=== PATIENT | male | born 1980 | race Caucasian/White ===

== ENCOUNTER 2019-10-21 13:50 | Emergency (ER) | payer SELFPAY ==
--- NOTE | ~2019-10-21 | CT_ITS ---
EXAMINATION: CT knee RT wo con DATE: 10/21/2019 15:40 INDICATION: Right knee pain TECHNIQUE: Computed tomography (CT) of the right knee was performed without intravenous contrast. The dose-length product (DLP) was 513.97 mGy-cm. Automated exposure control and iterative reconstruction technique were employed. COMPARISON: None FINDINGS: There is extensive soft tissue swelling surrounding the knee. This is worst in the infrapat ellar soft tissues. There is also heterogeneous attenuation predominantly in the medial musculature o f the knee at the level of patella. No fracture is identified. Bone alignment is normal. IMPRESSION: 1. Extensive soft tissue swelling in the infrapatellar space as well as suspicion for intramuscular h ematoma medial to the knee. Reviewed, dictated and finalized at location A. IMPRESSION: 1. Extensive soft tissue swelling in the infrapatellar space as well as suspici on for intramuscular hematoma medial to the knee.
[2019-10-21 13:55] VITALS: BP 109/62; PULSE 52; RESP 20; TEMP 36.6; O2SAT 100
[2019-10-21] MEDS: TETANUS,DIPHTHERIA,AC PERTUSSIS ADULT (0.5 ML) BOOSTRIX IM (14:42)
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
[2019-10-21 14:56] LABS: Basophils Absolute Auto 0.1 K/mm3 (0.0-0.1); Basophils Percent Auto 0.6 % (0.2-1.2); Eosinophils Absolute Auto 0.1 K/mm3 (0-0.3); Eosinophils Percent Auto 1.5 % (0-4.4); Hematocrit 37.7 % (42.0-52.0); Hemoglobin 12.3 g/dL (14.0-18.0); Immature Granulocyte Absolute 0.03 K/mm3 (0.00-0.031); Immature Granulocyte Percent A 0.4 % (0-0.5); Mean Corpuscular HGB Conc 32.6 g/dl (32-36); Monocytes Absolute Auto 0.7 K/mm3 (0.1-0.6); Monocytes Percent Auto 8.1 % (2.6-8.5); Neutrophils Absolute Auto 6.5 K/mm3 (1.3-6.7); Neutrophils Percent Auto 76.4 % (45.5-73.1); Platelet Count Result 216 k/mm3 (150-375); Red Cell Distribution Width 12.2 % (11.5-14.5); White Blood Count 8.5 K/mm3 (4.5-10.0)
[2019-10-21 15:25] LABS: Add Urine Microscopic? YES; Appearance Urine Clear (Clear); Bilirubin Urine Negative (Negative); Blood Urine Negative (Negative); Color Urine Yellow (Yellow); Glucose Urine UA Negative (Negative); Ketones Urine Negative (Negative); Leukocyte Esterase Ur Negative LEU/UL (Negative); Mucus Urine Few /lpf; Nitrate Urine Negative (Negative); Protein Urine 1+ mg/dL (Negative); RBC Urine 0-2 /hpf (0-2); Specific Grav Ur 1.021 (1.001-1.035); Squamous Epithelial Cell Urine Rare /hpf (Few); Urobilinogen Urine Negative mg/dL (<2.0); WBC Urine 0-3 /hpf
[2019-10-21 15:50] LABS: Blood Urea Nitrogen 11 mg/dL (9-20); Calcium 9.1 mg/dL (8.4-10.2); Carbon Dioxide 31 mmol/L (22-30); Chloride 101 mmol/L (98-107); Estimated Glomerular Filt Rate > 60; Glucose 146 mg/dL (75-110); Potassium 3.9 mmol/L (3.4-5.0); Sodium 135 mmol/L (137-145)
== END 2019-10-21 17:07 | disposition home or self-care (01) ==
PROVIDERS: Emergency Medicine Emergency Medical Services; Emergency Provider General Practice
DX: S83.206A Unspecified tear of unspecified meniscus, current injury, right knee, initial encounter (principal); Z23 Encounter for immunization; V86.55XA Driver of 3- or 4- wheeled all-terrain vehicle (ATV) injured in nontraffic accident, initial encounter
CPT/HCPCS: 36415; 73700; 80048; 81001; 85025; 90471; 90715; 96365; 99284; J0131

== ENCOUNTER 2021-05-21 12:21 | Emergency (ER) | payer SELFPAY ==
--- NOTE | ~2021-05-21 | XR_ITS ---
XR toe 2nd LT min 2V 05/21/2021 14:53 Indication: Left second toe pain for 3 months Procedure: 4 views left second toe Comparison: No prior studies for comparison. Findings: There is mild polyarticular osteoarthritis. No acute fracture or traumatic malalignment. Li sfranc joint intact. There is an erosion involving the medial aspect of the first metatarsal head, cohen spicious for inflammatory arthropathy. Impression: 1: Erosive change medial aspect of the left first metatarsal head, suspicious for inflammatory arthro mary alice. Reviewed, dictated and finalized at location A. RAL RESOURCE ECONOMIST Impression: 1: Erosive change medial aspect of the left first metatarsal head, suspicious f or inflammatory arthropathy.
--- NOTE | ~2021-05-21 | CT_ITS ---
EXAMINATION: CT abdomen pelvis w con DATE: 05/21/2021 16:36 INDICATION: Left abdominal swelling TECHNIQUE: Computed tomography (CT) of the abdomen and pelvis was performed with 100 cc Omnipaque 350 intravenous contrast. Automated exposure control and iterative reconstruction technique were employe d. Exam dose: 645.45 mGy-cm total exam DLP. COMPARISON: None. FINDINGS: The lung bases are clear of infiltrate or consolidation. Normal heart size. No pericardial or pleural effusion. The liver, gallbladder, bile ducts, spleen, pancreas, pancreatic duct, and adrenal glands and kidneys are unremarkable exception of approximately 9 mm left renal cyst. No urinary tract calculus or hydro ureteronephrosis. The urinary bladder, prostate gland and seminal vesicles are unremarkable. Normal caliber of the abdominal aorta. Retroaortic left renal vein. No intraperitoneal or retroperito franny or pelvic mass lesion or ascites. There are shotty nonenlarged periaortic and aortocaval lymph nodes. There are nonspecific mild nonenl arged lymph nodes along both external iliac thom chains. There are bilateral inguinal lymph nodes me asuring up to 1.7 x 2.5 cm on the left and 1.6 x 2.5 cm on the right. No inguinal hernias. Very slight fat-containing umbilical hernia. Normal appendix. No bowel obstruction, bowel wall thickening, pneumatosis or intraperitoneal free air . Levoscoliosis and multilevel degenerative disc disease of the lumbar spine. No suspicious osteolytic or osteoblastic lesions are noted. IMPRESSION: 9 mm left renal cyst Shotty nonenlarged periaortic and aortocaval lymph nodes and nonspecific mild nonenlarged bilateral e xternal iliac chain lymph nodes Nonspecific bilateral prominent inguinal lymph nodes Reviewed, dictated and finalized at Location A. Reviewed, dictated and finalized at location B. ER INSPECTOR PNEUMATIC IMPRESSION: 9 mm left renal cyst Shotty nonenlarged periaortic and aortocaval lymph nodes and nonspecific mild n onenlarged bilateral external iliac chain lymph nodes Nonspecific bilateral prominent inguinal lymph nodes
--- NOTE | ~2021-05-21 | XR_ITS ---
XR toe 2nd RT min 2V 05/21/2021 14:53 Indication: Right second toe pain for months Procedure: 4 views right second toe Comparison: No prior studies for comparison. Findings: There is an erosion involving the medial aspect of the second middle phalanx. There is hete rotopic ossification along the plantar aspect of the middle phalanx on the lateral view. There is mil d soft tissue swelling. No fracture is identified. There is degenerative change at the first MTP join t with possible marginal erosion involving the lateral aspect of the head of the first metatarsal. Th ere is hallux valgus. Impression: 1: Erosion involving the medial aspect of the right second middle phalanx. Possible resolution involv ing the head of the first metatarsal. Considerations include inflammatory arthropathy and infection. If there is concern for osteomyelitis, further evaluation with MRI is recommended. Reviewed, dictated and finalized at location A. ALL AND REPAIR TECHNICIAN Impression: 1: Erosion involving the medial aspect of the right second middle phalanx. Poss ible resolution involving the head of the first metatarsal. Considerations incl ude inflammatory arthropathy and infection. If there is concern for osteomyelit is, further evaluation with MRI is recommended.
[2021-05-21 12:27] VITALS: BP 145/93; PULSE 100; RESP 16; TEMP 36.6; O2SAT 100
--- NOTE | 2021-05-21 14:31 | ED.GENADULT ---
HPI - General Adult General Chief complaint: Extremity Injury, Lower Stated complaint: swollen toe and back Time Seen by Provider: 05/21/21 13:10 Source: patient Mode of arrival: ambulatory Limitations: no limitations History of Present Illness HPI narrative: Patient drove himself to the emergency room complaining of swelling second toe bilaterally for the last 3 months, also have some swelling of the left lower abdomen and left flank area 4 weeks, patient denies any pain, fever, chills, nausea, vomiting, diarrhea, constipation, urinary symptoms. Patient smokes, does not drink, does not use marijuana. Related Data Allergies Allergy/AdvReac Type Severity Reaction Status Date / Time No Known Allergies Allergy Verified 05/21/21 12:40 Review of Systems Review of Systems: CONSTITUTIONAL: Denies fever, chills, or sweats. EYES: Denies visual changes, redness, or discharge. ENT: Denies rhinorrhea, congestion, sore throat, or otalgia. CARDIOVASCULAR: Denies chest pain, palpitations, or edema. RESPIRATORY: Denies cough or dyspnea. GASTROINTESTINAL: Denies abdominal pain, nausea, vomiting, or diarrhea. GENITOURINARY: Denies dysuria or hematuria. SKIN: Denies rash or itching. MUSCULOSKELETAL: Denies back pain, joint pain, or myalgia. NEUROLOGIC: Denies headache, numbness, or weakness. PSYCHIATRIC: Denies anxiety or depression. PMFSH Social History Social History Smoking status: Never smoker Exam Narrative: General appearance: Well-developed, well-nourished Skin: Normal color Head: Normocephalic, nontraumatic Eyes: Clear conjunctiva ENT: Oropharynx normal, ears normal, nose normal Neck: Supple, nontender Chest and respiratory: Airway patent, no respiratory distress, no accessory muscle use Heart: Regular rate/rhythm Abdomen: Soft, nontender, no organomegaly, quiet bowel sounds Vascular: Normal peripheral pulses, normal capillary refill. Musculoskeletal: Second toe bilaterally is swollen, slightly red, no tenderness, with some ulceration medially looks like ductulitis, psoriatic arthritis Neurologic: Alert and oriented ?3, GENERAL MEDICAL PRACTITIONER is normal as tested, no gross motor deficit Course Course Emergency Course: Stable Consultations Consultation #1: Dr. Mei Date: 05/21/21 Time: 16:57 Vital Signs Vital signs: Vital Signs Temperature 36.6 C 05/21/21 12:27 Pulse Rate 100 05/21/21 12:27 Respiratory Rate 16 05/21/21 12:27 Blood Pressure 145/93 H 05/21/21 12:27 Pulse Oximetry 100 05/21/21 12:27 Temperature 36.6 C 05/21/21 12:27 Pulse Rate 100 05/21/21 12:27 Respiratory Rate 16 05/21/21 12:27 Blood Pressure 145/93 H 05/21/21 12:27 Pulse Oximetry 100 05/21/21 12:27 Medical Decision Making MDM Narrative Medical decision making narrative: Patient did not see a physician or did not have any blood work-up for years. Swollen toes high likely secondary to tinea pedis versus callus. None tender, nonpainful swelling of the left lower abdomen and left flank area of unknown etiology at this time, CT scan of the abdomen and pelvis ordered. Differential Diagnosis Differential Diagnosis: Tinea pedis, callus, electrolyte imbalance, diabetes Vital Signs Vital Signs: Vital Signs Temperature 36.6 C 05/21/21 12:27 Pulse Rate 100 05/21/21 12:27 Respiratory Rate 16 05/21/21 12:27 Blood Pressure 145/93 H 05/21/21 12:27 Pulse Oximetry 100 05/21/21 12:27 Temperature 36.6 C 05/21/21 12:27 Pulse Rate 100 05/21/21 12:27 Respiratory Rate 16 05/21/21 12:27 Blood Pressure 145/93 H 05/21/21 12:27 Pulse Oximetry 100 05/21/21 12:27 Lab Data Result diagram
[2021-05-21 15:27] LABS: Basophils Percent Auto 0.6 % (0.2-1.2); Eosinophils Absolute Auto 0.5 K/mm3 (0-0.3); Eosinophils Percent Auto 7.7 % (0-4.4); Hematocrit 44.3 % (42.0-52.0); Hemoglobin 14.3 g/dL (14.0-18.0); Immature Granulocyte Absolute 0.03 K/mm3 (0.00-0.031); Immature Granulocyte Percent A 0.5 % (0-0.5); Lymphocytes Absolute Auto 1.68 K/mm3 (0.9-3.2); Lymphocytes Percent Auto 25.3 % (18.3-44.2); Mean Corpuscular HGB Conc 32.3 g/dl (32-36); Mean Corpuscular Hemoglobin 29.7 pg (26-34); Mean Corpuscular Volume 92.1 fl (80-100); Mean Platelet Volume 9.2 fl (7.4-10.4); Monocytes Absolute Auto 0.6 K/mm3 (0.1-0.6); Monocytes Percent Auto 8.3 % (2.6-8.5); Neutrophils Absolute Auto 3.8 K/mm3 (1.3-6.7); Neutrophils Percent Auto 57.6 % (45.5-73.1); Platelet Count Result 313 k/mm3 (150-375); Red Blood Count 4.81 M/mm3 (4.6-6.20); White Blood Count 6.7 K/mm3 (4.5-10.0)
[2021-05-21 15:42] LABS: Add Urine Microscopic? YES; Appearance Urine Clear (Clear); Bilirubin Urine Negative (Negative); Blood Urine Negative (Negative); Color Urine Yellow (Yellow); Glucose Urine UA Negative (Negative); Ketones Urine Negative (Negative); Leukocyte Esterase Ur Negative LEU/UL (Negative); Mucus Urine Rare /lpf; Nitrate Urine Negative (Negative); Protein Urine Negative (Negative); RBC Urine 0-2 /hpf (0-2); Specific Grav Ur 1.027 (1.001-1.035); WBC Urine 0-3 /hpf
[2021-05-21 16:24] LABS: Alanine Aminotransferase 145 U/L (4-50); Albumin Level 4.7 g/dL (3.5-5.1); Alkaline Phosphatase 65 U/L (38-126); Anion Gap 7 mmol/L (8-16); Aspartate Amino Transferase 77 U/L (17-59); Bilirubin,Total 0.5 mg/dL (0.2-1.3); Blood Urea Nitrogen 16 mg/dL (9-20); Calcium 9.4 mg/dL (8.4-10.2); Carbon Dioxide 28 mmol/L (22-30); Chloride 100 mmol/L (98-107); Estimated CRCL calculation 108 ml/min; Estimated Glomerular Filt Rate > 60; Glucose 87 mg/dL (65-110); Lipase 130 U/L (23-300); Potassium 3.9 mmol/L (3.4-5.0); Sodium 135 mmol/L (137-145)
[2021-05-21 16:25] LABS: Creatine Kinase 361 U/L (55-170); Uric Acid 5.2 mg/dL (3.5-8.5)
[2021-05-21 16:28] LABS: CRP < 0.5 mg/dL (<1.0)
--- NOTE | 2021-05-21 16:31 | PC.NURSE ---
Off floor to CT scan.
[2021-05-21 17:15] VITALS: BP 139/103; PULSE 79; RESP 16; TEMP 36.6; O2SAT 98
[2021-05-21 17:30] LABS: Erythrocyte Sedimentation Rate 7 mm/hr (0-20)
== END 2021-05-21 17:15 | disposition home or self-care (01) ==
PROVIDERS: Emergency Provider Emergency Medicine
DX: M13.872 Other specified arthritis, left ankle and foot (principal); M13.871 Other specified arthritis, right ankle and foot; N28.1 Cyst of kidney, acquired
CPT/HCPCS: 36415; 73660; 74177; 80053; 81001; 82550; 83690; 84550; 85025; 85652; 86140; 99284; Q9967

== ENCOUNTER 2022-04-08 19:02 | Inpatient (IN) | payer MEDICAID, SELFPAY ==
--- NOTE | ~2022-04-08 | XR_ITS ---
EXAM: XR toe 2nd RT min 2V DATE: 04/08/2022 19:58 HISTORY: SWELLING/REDNESS. INFECTION X 2 WKS. NKI . COMPARISON: 05/21/2021. FINDINGS: Decreased mineralization. No fracture or dislocation. No lytic or blastic lesion. Moderate hallux valgus. Increased erosion and fragmentation of the medial and lateral aspect of the second mi ddle phalange. Significant soft tissue swelling of the second toe. IMPRESSION: Worsening erosion at the right second middle phalange with severe overlying soft tissue s welling. Differential considerations include inflammatory arthropathy and infection. Reviewed, dictated and finalized at location K. MAKER SUPERVISOR IMPRESSION: Worsening erosion at the right second middle phalange with severe o verlying soft tissue swelling. Differential considerations include inflammatory arthropathy and infection.
--- NOTE | ~2022-04-08 | XR_ITS ---
EXAMINATION: XR chest 2V DATE: 04/11/2022 15:26 INDICATION: Fever. TECHNIQUE: Frontal and lateral views of the chest were obtained. COMPARISON: CT abdomen and pelvis 05/21/2021 FINDINGS: A calcified right lung nodule is consistent with old granulomatous disease. No pneumonia, p leural effusion, or pneumothorax. The heart size is normal. No acute cardiopulmonary disease. IMPRESSION: 1. No acute cardiopulmonary disease. Reviewed, dictated and finalized at location A. RICT MANAGER IN TRAINING
--- NOTE | ~2022-04-08 | XR_ITS ---
EXAMINATION: XR toe 2nd LT min 2V DATE: 04/08/2022 23:05 INDICATION: Swelling and inflammation at the second toe. TECHNIQUE: Dorsal plantar, lateral and 2 oblique views of the left second toe were obtained. COMPARISON: None FINDINGS: Hallux valgus and bunion with mild hypertrophic change at the medial head of the first metatarsal. Sl ight contour abnormality to the intact cortex at the dorsal/ulnar aspect of the neck of the third met atarsal which could represent an old healed fracture deformity or sessile osteochondroma. Chronic lat eral sloping of the articular surface at the head of the second middle phalanx resulting in some valg us angulation at the second distal interphalangeal joint which could be either developmental or seque la of old trauma. No acute fracture. Mild polyarticular osteoarthritis at the metatarsophalangeal and interphalangeal joints, greatest at the first metatarsophalangeal joint. There is soft tissue swelli ng about the second toe with small full bulge medial to the second proximal interphalangeal joint. T here is a new small erosion along the medial cortex at the base of the second middle phalanx. IMPRESSION: Prominent soft tissue swelling at the second toe most prominent medial to the second proximal interph alangeal joint with underlying new erosion at the medial base of the second middle phalanx which is c oncerning for osteomyelitis. Differential would include other inflammatory or crystalline arthropathy including gout or pressure erosion related to a chronic enlarging mass. Reviewed, dictated and finalized at location A. CIPAL AUTOMATION ENGINEER IMPRESSION: Prominent soft tissue swelling at the second toe most prominent medial to the s econd proximal interphalangeal joint with underlying new erosion at the medial base of the second middle phalanx which is concerning for osteomyelitis. Differ ential would include other inflammatory or crystalline arthropathy including go ut or pressure erosion related to a chronic enlarging mass.
[2022-04-08 19:40] VITALS: BP 152/104; PULSE 105; RESP 20; TEMP 37.3; O2SAT 99
--- NOTE | 2022-04-08 22:47 | ED.LOWEXIN ---
HPI - Extremity Injury (Lower) General Chief Complaint: Extremity Injury, Lower <RADHIKA Soriano Last Filed: 04/09/22 02:19> Stated Complaint: infection to feet <RADHIKA Soriano Last Filed: 04/09/22 02:19> Time Seen by Provider: 04/08/22 22:40 <RADHIKA Soriano Last Filed: 04/09/22 02:19> History of Present Illness HPI Narrative: Patient is a 42-year-old male here for evaluation of swelling pain and a draining wound to his bilateral second toes. The patient states the swelling and inflammation first noticed about a year ago, was seen in the ED at that time and diagnosed with an inflammatory arthropathy. Was told to follow-up with donation specialist which she did not do. Patient states the swelling never decreased, but he states the pain has acutely increased over the past 2 weeks, which prompted his ED evaluation today. Has history of IVDU. He denies any fevers, chills, nausea, vomiting, further systemic symptoms. <RADHIKA Soriano Last Filed: 04/09/22 02:19> Related Data Allergies/Adverse Reactions: Allergies Allergy/AdvReac Type Severity Reaction Status Date / Time No Known Allergies Allergy Verified 04/09/22 04:41 <RADHIKA Soriano Last Filed: 04/09/22 02:19> Review of Systems Review of Systems: Gen.: Denies fevers or chills Eyes: Denies eye pain or visual change ENT: Denies congestion Respiratory: Denies shortness of breath or cough CV: Denies chest pain or palpitations GI: Denies abdominal pain nausea, emesis or diarrhea denies burning, urgency, frequency or hematuria Musculoskeletal: Reports swelling and pain to bilateral second toes. Denies back pain or muscle pain Neuro: Denies numbness, tingling, weakness or focal weakness Skin: Denies rash Except as documented, all other systems reviewed and negative <RAHDIKA Soriano Last Filed: 04/09/22 02:19> [facility] Social History Social History: Social History Smoking status: Never smoker <Fany Davis PA-C - Last Filed: 04/09/22 02:19> Exam Narrative: APPEARANCE: Well appearing, no pain in distress, well-nourished. Head: Normocephalic and atraumatic. EYES: PERRLA/EOMI, conjunctivae clear NOSE: No nasal drainage EARS: External ear normal in appearance THROAT: Oropharynx is clear. Mucous membranes are moist. NECK: Supple. No adenopathy, no masses. RESPIRATORY: Airway patent, respirations nonlabored. Clear to auscultation bilaterally, no rales, rhonchi, wheezing. CARDIOVASCULAR: Regular rate and rhythm without murmurs, rubs, or gallops. ABDOMINAL: Normoactive bowel sounds. Soft, nontender, nondistended. No rebound tenderness or guarding. MUSCULOSKELETAL: Patient's second toes bilaterally are markedly swollen, red with open wounds draining serous fluid. Full range of motion in feet and toes. NEURO: Normal speech. No focal neurologic deficits. SKIN: Open and draining wounds to medial aspect of second toes bilaterally. Erythema is present to the right lower extremity fpc up the knee. PSYCHIATRIC: Normal affect/mood. <Fany Davis PA-C - Last Filed: 04/09/22 02:19> Course SCHOOL SERVICES OFFICER/PA Physician Supervision For this encounter, I have reviewed the mid-level provider documentation, treatment plan and medical decision making with the following additions. I have had [id number] time with the patient. Physical exam revealed significant erythema, swelling and purulent discharge from the 2nd toe on each foot. X-ray showed bony erosions Which are more consistent with osteomyelitis as opposed to cellulitis. Patient needs IV antibiotics and has been admitted to hospital. <Easton Balderrama MD - Last Filed: 04/09/22 04:56> Vital Signs Vital signs: Vital Signs Temperature 99.2 F 04/08/22 19:40 Pulse Rate 105 H 04/08/22 19:40 Respiratory Rate 20 04/08/22 19:40 Blood Pressure 152/
[2022-04-08 22:48] LABS: Glucose Point of Care 75 mg/dl (65-105)
[2022-04-09] VITALS (7 sets, daily range): BP systolic 129–168; BP diastolic 84–89; PULSE 68–101; RESP 16–20; TEMP 35.9–36.4; O2SAT 98–100; BMI 23.6
[2022-04-09 01:05] LABS: Basophils Absolute Auto 0.1 K/mm3 (0.0-0.1); Basophils Percent Auto 0.9 % (0.2-1.2); Eosinophils Absolute Auto 0.4 K/mm3 (0-0.3); Hematocrit 44.4 % (42.0-52.0); Hemoglobin 14.4 g/dL (14.0-18.0); Immature Granulocyte Absolute 0.01 K/mm3 (0.00-0.031); Immature Granulocyte Percent A 0.2 % (0-0.5); Lymphocytes Absolute Auto 1.47 K/mm3 (0.9-3.2); Lymphocytes Percent Auto 22.4 % (18.3-44.2); Mean Corpuscular HGB Conc 32.4 g/dl (32-36); Mean Corpuscular Hemoglobin 29.4 pg (26-34); Mean Corpuscular Volume 90.8 fl (80-100); Mean Platelet Volume 8.9 fl (7.4-10.4); Monocytes Absolute Auto 0.8 K/mm3 (0.1-0.6); Monocytes Percent Auto 11.6 % (2.6-8.5); Neutrophils Absolute Auto 3.9 K/mm3 (1.3-6.7); Neutrophils Percent Auto 58.9 % (45.5-73.1); Platelet Count Result 333 k/mm3 (150-375); Red Blood Count 4.89 M/mm3 (4.6-6.20); Red Cell Distribution Width 12.1 % (11.5-14.5); White Blood Count 6.6 K/mm3 (4.5-10.0)
[2022-04-09 01:16] LABS: Lactic Acid Reflex 1.3 mmol/L (0.7-2.0)
[2022-04-09 01:17] LABS: Alanine Aminotransferase 144 U/L (6-50); Albumin Level 4.6 g/dL (3.5-5.1); Alkaline Phosphatase 86 U/L (38-126); Anion Gap 12 mmol/L (8-16); Aspartate Amino Transferase 89 U/L (17-59); Bilirubin,Total 0.5 mg/dL (0.2-1.3); Blood Urea Nitrogen 19 mg/dL (9-20); CRP 0.9 mg/dL (<1.0); Calcium 8.9 mg/dL (8.4-10.2); Carbon Dioxide 26 mmol/L (22-30); Chloride 99 mmol/L (98-107); Estimated CRCL calculation 107 ml/min; Estimated Glomerular Filt Rate > 60; Glucose 103 mg/dL (65-110); Potassium 3.6 mmol/L (3.4-5.0); Sodium 137 mmol/L (137-145)
[2022-04-09 01:29] LABS: Erythrocyte Sedimentation Rate 15 mm/hr (0-20)
[2022-04-09] MEDS: SODIUM CHLORIDE 0.9% IV 1,000 ML 999 ML IV CONT (01:56)
[2022-04-09 02:59] LABS: SARS-CoV-2 RNA PCR Negative
--- NOTE | 2022-04-09 04:36 | PC.NURSE ---
Patient arrived on unit at 04:22 on 04/09/2022
--- NOTE | 2022-04-09 07:53 | PM.IMHP ---
H&P: HPI History of Present Illness Date/Time: 04/09/22 07:53 Chief Complaint: toe infection Narrative: Patient is a 42-year-old male who prsents to the hospital with 2 weeks of ulceration and drainage of bilateral second toes. he reports he has chronic swelling of his bailteral second two for years but has not been draining until two week back. he rperots no swelling. no fever, chlls. no nausea, vomiting. abdomina lpain. he feels the swelling has increased since this and also feels soreness in his legs. right more than left.he used to use iv drugs in the past but last use was 7 years ago. ? Review of Systems Review of Systems: - CONSTITUTIONAL: Denies weight loss, fever and chills. - HEENT: Denies changes in vision and hearing - RESPIRATORY: Denies SOB and cough. - CV: Denies palpitations and CP. - GI: Denies abdominal pain, nausea, vomiting and diarrhea. - : Denies dysuria and urinary frequency. - MSK: see above - SKIN: Denies rash and pruritus. - NEUROLOGICAL: Denies headache and syncope. - PSYCHIATRIC: Denies recent changes in mood. Denies anxiety and depression. [facility] Social History Social History Smoking packs per day: 0.5 Smoking cigarettes per day: 10.0 Smoking status: Former smoker Tobacco type: cigarettes Smoking end date: 04/09/19 Alcohol intake: never Substance use: former Substance use type: crack/cocaine Last use: 04/06/2022 Has the Lack of Transportation Kept You From Medical Appointments or From Getting Medications?: No Within the Past 12 Months, Were You Worried Whether Your Food Would Run Out Before You Got Money to Buy More?: Never True What is Your Housing Situation Today?: I Have Housing Are You Worried That in the Next 2 Months, You May Not Have Your Own Housing to Live In?: No Do You Have Trouble Paying Your Heating Or Electricity Bill?: No Do You Have Trouble Paying For Medicines?: No Are You Currently Unemployed and Looking for Work?: No Highest Level of Education Completed: High School Diploma/GED Do You Have Trouble With Childcare or the Care of a Family Member?: No Spiritual care concerns: No Meds Home Medications and Allergies Home Medications Medication Instructions Recorded Confirmed Type No Home Medications 04/09/22 04/09/22 History Allergies Allergy/AdvReac Type Severity Reaction Status Date / Time No Known Allergies Allergy Verified 04/09/22 04:41 Vital Signs Vital Signs - 24 hr 04/08/22 19:40 04/09/22 01:05 04/09/22 02:15 Temperature 99.2 F Pulse Rate 105 H 101 H 99 Respiratory Rate 20 16 18 Blood Pressure 152/104 H 148/86 H 150/89 H Pulse Oximetry 99 98 99 Oxygen Delivery Room Air 04/09/22 03:13 04/09/22 04:51 04/09/22 05:48 Temperature 97.5 F L Pulse Rate 87 72 Respiratory Rate 18 20 Blood Pressure 168/89 H 138/86 Pulse Oximetry 98 100 Oxygen Delivery Room Air Exam Narrative: APPEARANCE: Well appearing, no pain in distress, well-nourished. Head: Normocephalic and atraumatic. EYES: PERRLA/EOMI, conjunctivae clear THROAT: Oropharynx is clear. Mucous membranes are moist. NECK: Supple. No adenopathy, no masses. RESPIRATORY: Airway patent, respirations nonlabored. Clear to auscultation bilaterally, no rales, rhonchi, wheezing. CARDIOVASCULAR: Regular rate and rhythm without murmurs, rubs, or gallops. ABDOMINAL: Normoactive bowel sounds. Soft, nontender, nondistended. No rebound tenderness or guarding. MUSCULOSKELETAL: Patient's second toes bilaterally are markedly swollen, red with open wounds draining serous fluid on medial side.? Full range of motion in feet and toes. NEURO: Normal speech. No focal neurologic deficits. SKIN: Open and draining wounds to medial aspect of second toes bilaterally.?foul smell. mildly erythematous lower extremity swelling PSYCHIATRIC: Normal affect/mood.?? H&P: Results Labs Labs: Short CBC 04/09/22
[2022-04-09 08:22] LABS: Uric Acid 5.4 mg/dL (3.5-8.5)
[2022-04-09 11:43] LABS: Rheumatoid Factor < 8.6 IU/ML (<12)
[2022-04-09 12:20] LABS: HIV 1/2 Ab P24 Ag Result Negative (Negative)
[2022-04-09 12:30] LABS: Hepatitis B Surface Antigen Negative (Negative)
[2022-04-09 12:36] LABS: HAV RESULT Negative (Negative); Hepatitis B Core IgM Result Negative (Negative)
[2022-04-09 12:50] LABS: Hepatitis C Virus Antibody Reactive (Negative)
--- NOTE | 2022-04-09 13:11 | PM.CNOR ---
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 Swelling of the 2nd toe present for the past year. Patient has not been seen for any medical treatment in the interim. Recent ulceration which is most likely due to pressure secondary to the size of the toe. Drainage is clear fluid. Patient has good vascularity but poor nerve function. Treatment options reviewed. Non operative treatment reviewed which would most likely include long-term IV antibiotics and wound care. Surgical treatment would include 2nd toe amputation bilaterally. Patient would like to consider his options. Questions were answered today. He has been started on IV antibiotics. (2) Ulcer of toe of left foot: Qualifiers: Non-pressure ulcer stage: with necrosis of bone Qualified Code(s): L97.524 - Non-pressure chronic ulcer of other part of left foot with necrosis of bone Code(s): L97.529 - Non-pressure chronic ulcer of other part of left foot with unspecified severity Status: Acute (3) Ulcer of toe of right foot: Qualifiers: Non-pressure ulcer stage: with necrosis of bone Qualified Code(s): L97.514 - Non-pressure chronic ulcer of other part of right foot with necrosis of bone Code(s): L97.519 - Non-pressure chronic ulcer of other part of right foot with unspecified severity Status: Acute History of Present Illness HPI Consult date: 04/09/22 Requesting physician: Pedro Reis MD Chief complaint: Cellulitis of the Second Toe Narrative: 42-year-old with bilateral 2nd toe swelling. Patient was told he has some sort of inflammatory arthritis. He has had swelling of the toes for the past year. Several weeks ago noted drainage from the inner aspect of both the right and left 2nd toe. Presented to the emergency room and was admitted for antibiotics. Orthopedics consulted for ulcer with drainage bilateral 2nd toes. Patient denies fever or chills at home. Denies numbness or tingling. 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 He states that he wears construction boots during the day. Year ago he was evaluated and noted to have toe swelling. He states he never followed up with Rheumatology or a verification specialist at that time. Review of Systems Constitutional: Constitutional: Denies fever(s) Eyes: Eyes: Denies blurry vision ENT: Reports Normal hearing present Cardiovascular: Cardiovascular: Denies chest pain and Denies dyspnea Respiratory: Respiratory: Denies dyspnea and Denies wheezing Gastrointestinal: Gastrointestinal: Denies abdominal pain Genitourinary: Genitourinary: Denies urinary urgency Musculoskeletal: Musculoskeletal: Reports as per HPI and Denies numbness Integumentary/Breasts: Skin/Breast: Denies changing lesions and Denies sores Neurologic: Reports Normal hearing present, Denies behavioral changes, Denies confusion, Denies numbness and Denies convulsions Psychiatric: Psychiatric: Denies behavioral changes, Denies confusion and Denies hallucinations Endocrine: Endocrine: Denies heat intolerance Hematologic/Lymphatic: Hematologic/Lymphatic: Denies easy bleeding Allergic/Immunologic: Allergic/Immunologic: Denies wheezing PMFSH Past Medical History Medical History (Updated 04/09/22 @ 13:22 by Esa Mei MD) Ulcer of toe of left foot Ulcer of toe of right foot Social History Social History Smoking packs per day: 0.5 Smoking cigarettes per day: 10.0 Smoking status: Former smoker Tobacco type: cigarettes Smoking end date: 04/09/19 Alcohol intake: never Substance use: former Substance use type: crack/cocaine Last use: 04/06/2022 Has the Lack of Transportation Kept You From Medical Appoint
[2022-04-09] MEDS: SILVERGEL (ELTA) 45 ML 1 APPLIC TOPICAL (17:41)
[2022-04-10] VITALS (14 sets, daily range): BP systolic 113–148; BP diastolic 78–98; PULSE 67–98; RESP 12–20; TEMP 35.8–37.1; O2SAT 95–100
--- NOTE | 2022-04-10 08:03 | PM.PNORT ---
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 Swelling of the 2nd toe present for the past year. He has been started on IV antibiotics. Treatment options reviewed once again including attempted salvage versus amputation. Patient desires operative treatment. Discussed nonoperative and operative treatment options with the patient. Risks and benefits of each as well as alternatives were reviewed. All of the patient's questions were answered. The risks of surgery reviewed including but not limited to: Neurovascular damage, wound complication, infection, blood clot, pulmonary embolus, stroke, myocardial infarction, and anesthetic risks up to and including . Continued pain and possible dysfunction were explained. Specific risks of the procedure including later recurrence of deformity. No guarantees were offered. If hardware used, discussed risk of failure/ breakage and possible need for removal. If complications occur, the patient understands the need for further treatment, possible further surgery. Patient verbalizes understanding and wishes to proceed. PLAN: Bilateral 2nd toe amputation (2) Ulcer of toe of left foot: Qualifiers: Non-pressure ulcer stage: with necrosis of bone Qualified Code(s): L97.524 - Non-pressure chronic ulcer of other part of left foot with necrosis of bone Code(s): L97.529 - Non-pressure chronic ulcer of other part of left foot with unspecified severity Status: Acute (3) Ulcer of toe of right foot: Qualifiers: Non-pressure ulcer stage: with necrosis of bone Qualified Code(s): L97.514 - Non-pressure chronic ulcer of other part of right foot with necrosis of bone Code(s): L97.519 - Non-pressure chronic ulcer of other part of right foot with unspecified severity Status: Acute Subjective Subjective Date/Time Seen: 04/10/22 08:03 Principal diagnosis: Bilateral 2nd toe ulceration Interval history: patient with no new complaints overnight. Desires operative treatment. Review of Systems Constitutional: Constitutional: Denies fever(s) Eyes: Eyes: Denies blurry vision ENT: Reports Normal hearing present Cardiovascular: Cardiovascular: Denies chest pain and Denies dyspnea Respiratory: Respiratory: Denies dyspnea and Denies wheezing Gastrointestinal: Gastrointestinal: Denies abdominal pain Genitourinary: Genitourinary: Denies urinary urgency Musculoskeletal: Musculoskeletal: Reports as per HPI and Denies numbness Integumentary/Breasts: Skin/Breast: Denies changing lesions and Denies sores Neurologic: Reports Normal hearing present, Denies behavioral changes, Denies confusion, Denies numbness and Denies convulsions Psychiatric: Psychiatric: Denies behavioral changes, Denies confusion and Denies hallucinations Endocrine: Endocrine: Denies heat intolerance Hematologic/Lymphatic: Hematologic/Lymphatic: Denies easy bleeding Allergic/Immunologic: Allergic/Immunologic: Denies wheezing Exam Const: General: healthy appearing; No in distress or confusion Orientation/consciousness: oriented to person, oriented to place, oriented to time and No confusion HENMT: Head: normal to inspection, normocephalic and atraumatic Eyes: Conjunctivae: conjunctivae normal Sclera: sclerae normal Neck: Neck: supple and nontender Resp: Effort & Inspection: normal respiratory effort and no audible wheezes Cardio: Rate: regular rate Rhythm: regular rhythm Skin: General skin exam: no rashes or lesions noted Neuro: General: oriented to person, oriented to place, oriented to time and No confusion Cranial nerves: Yes Normal hearing present Extrem: Right upper extremity: normal to inspection Left upper extremity: normal to
--- NOTE | 2022-04-10 08:09 | WPDHPUPDATE1 ---
History and Physical Update Update Date/Time: 04/10/22 08:09 History and Physical has been reviewed, including an updated exam of the patient. There are NO changes in the patient's condition. Risks, benefits, and alternatives have been discussed and questions answered. Patient agrees to proceed with procedure.
[2022-04-10 11:43] LABS: Vancomycin Trough 9.3 ug/mL (10.0-20.0)
--- NOTE | 2022-04-10 12:31 | PM.IMPN ---
Progress Note: A&P Assessment and Plan (1) Cellulitis of both feet: Code(s): L03.115 - Cellulitis of right lower limb; L03.116 - Cellulitis of left lower limb Status: Acute (2) Osteomyelitis: Code(s): M86.9 - Osteomyelitis, unspecified Status: Acute Plan Bilateral toe ulcers with surrounding cellulitis: iv vancomycin. wound culture obtain which is growing few Gram-negative bacilli and few Gram-positive cocci. Consulted Dr. Sawant. Blood culture x2 remains negative.no hx of recent iv drug use. used ivdrugs 7 years ago as stated by the patient. Will add Zosyn to cover for Gram-negative as well as anaerobes. Toe osteomyelitis noted in xrays. iv vancomycn. may need to add another agent to cover gram negatives, if reasonably can get tissue culture prior to that. Is planned for amputation of bilateral toes. Will add IV Zosyn. Wound culture growing Gram-negative bacilli Gram-positive cocci. Culture pending. 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 No further workup has been. HIV screen negative. Hepatitis profile pending. ESR CRP normal. rheumatoid arthritis factor is negative anti CCP pending [facility] screen pending. Hepatitis C antibody screen did come back reactive. HCV RNA viral load is pending. # positive hepatitis C antibody screen: HCV RNA PCR pending. History of IV drug abuse in the past. #History of IV drug use #DVT prophylaxis Lovenox #Code status full code Subjective Date/time seen: 04/10/22 12:31 Interval history: no overnight events. No new complaints. Denies any fever chills. Bilateral toe ulcer draining. Plan for amputation today Review of Systems Review of Systems: All systems reviewed & are unremarkable except as noted in HPI and below Exam Narrative: APPEARANCE: Well appearing, no pain in distress, well-nourished. Head: Normocephalic and atraumatic. EYES: PERRLA/EOMI, conjunctivae clear THROAT: Oropharynx is clear. Mucous membranes are moist. NECK: Supple. No adenopathy, no masses. RESPIRATORY: Airway patent, respirations nonlabored. Clear to auscultation bilaterally, no rales, rhonchi, wheezing. CARDIOVASCULAR: Regular rate and rhythm without murmurs, rubs, or gallops. ABDOMINAL: Normoactive bowel sounds. Soft, nontender, nondistended. No rebound tenderness or guarding. MUSCULOSKELETAL: Patient's second toes bilaterally are markedly swollen, red with open wounds draining serous fluid on medial side.? Full range of motion in feet and toes. NEURO: Normal speech. No focal neurologic deficits. SKIN: Open and draining wounds to medial aspect of second toes bilaterally.?foul smell. mildly erythematous lower extremity swelling PSYCHIATRIC: Normal affect/mood.?? Objective Data Vital Signs Vital Signs: Vital Signs - 24 hr 04/09/22 14:00 04/09/22 22:00 04/09/22 20:00 Temperature 97.6 F 96.6 F L Pulse Rate 68 101 H 101 H Respiratory Rate 16 18 18 Blood Pressure 129/84 139/89 Pulse Oximetry 100 98 98 Oxygen Delivery Room Air 04/10/22 06:00 04/10/22 08:59 Temperature 97.4 F L Pulse Rate 78 Respiratory Rate 20 Blood Pressure 148/95 H Pulse Oximetry 100 99 Oxygen Delivery Room Air Intake/Output Intake/Output: Intake & Output 04/07/22 04/08/22 04/09/22 04/10/22 23:59 23:59 23:59 23:59 Intake Total 2790 1110 Balance 2790 1110 Meds/Results Medications: Active Medications Generic Name Dose Route Start Last Admin Trade Name Allq PRN Reason Stop Dose Admin Vancomycin HCl 1,250 mg in 250 mls @ 200 mls/hr 04/09/22 12:00 04/10/22 12:21 Vancomycin 1,250 Mg/D5w 250 Ml IVPB 04/10/22 15:00 125 mls/hr Q12H MAYNOR Administration Lactated Ringer's 1,000 mls @ 30 mls/hr 04/10/22 09:35 Lr - Lactated Ringers Iv IV CONT .Q24H MAYNOR Piperacillin Sod/Tazobactam 100 mls @ 200 mls/hr 04/10/22 12:00 Sod 4.5 gm/ Sodium Chloride IVPB Q6HR MAYNOR Vancomycin HCl 1,500 mg in 500 mls @ 333.333 mls/hr
--- NOTE | 2022-04-10 12:49 | WPDANESEPPF ---
Anes - Initial Pre Proc Eval Procedure: Operation Date: 04/10/22 13:30 Proposed Procedures p Bilateral Second Toe Amputation - Esa Mei MD Date/Time: 04/10/22 12:49 Surgeon: Pedro Reis MD Pre Op Diagnosis: Cellulitis of the Second Toe Patient Data Age: 42 Gender: M Height: 1.88 m Weight: 83.5 kg Last Vital Signs Temp 37.1 C 04/10/22 12:46 Pulse 87 04/10/22 12:46 Resp 16 04/10/22 12:46 BP 145/98 H 04/10/22 12:46 Pulse Ox 98 04/10/22 12:46 O2 Del Method Room Air 04/10/22 12:46 Allergies Allergy/AdvReac Type Severity Reaction Status Date / Time No Known Allergies Allergy Verified 04/09/22 04:41 Home Medications Medication Instructions Recorded Confirmed Type No Home Medications 04/09/22 04/09/22 History Laboratory Tests 04/09/22 04/09/22 04/10/22 11:16 11:16 10:30 Vancomycin Trough 9.3 ug/mL L ug/mL (10.0-20.0) Hepatitis C Ab Screen Reactive (Negative) HCV RNA (PCR) IUs/ml Pending HCV RNA PCR log IUs/ml Pending Patient hx anesthesia problems: none Family hx anesthesia problems: none Results Review: All pre-operative results and documents have been reviewed as part of the pre-operative evaluation. [facility] Past Medical History Medical History IV drug user Ulcer of toe of left foot Ulcer of toe of right foot Social History Social History Smoking packs per day: 0.5 Smoking cigarettes per day: 10.0 Smoking status: Former smoker Tobacco type: cigarettes Smoking end date: 04/09/19 Alcohol intake: never Substance use: former Substance use type: crack/cocaine Last use: 04/06/2022 Lack of Transportation: No Lack of Food: Never True Current Housing: I Have Housing Concerned About Future Housing: No Difficulty Paying Gas/Electric Bills: No Difficulty Paying for Meds: No Currently Unemployed: No Education: High School Diploma/GED Difficulty w/ Childcare or Family Care: No Spiritual care concerns: No Anes - Eval Final PreProcedure Day of Procedure 04/10/22 12:49 Patient weight: normal Heart: regular rate and rhythm Lungs: decreased breath sounds Airway: Mallampati scale class II Neurological: alert and oriented Last oral intake: >/= 8 hours ASA classification: III Emergent: no Anesthetic plan: proceed Anesthesia type and monitoring: general LMA and standard monitoring Results Review: All pre-operative results and documents have been reviewed as part of the pre-operative evaluation. Informed Consent: The patient's anesthetic plan and its attendant risks and benefits were discussed with the patient/family/POA. Questions were solicited and answers provided to the satisfaction of the patient/family/POA.
[2022-04-10] MEDS: PIPERACILLIN/TAZOBACTAM SOD 4.5 GM in SODIUM CHLORIDE 0.9% IV 100 ML 200 ML IVPB ×3 (14:00→23:14)
[2022-04-10] MEDS: BUPIVACAINE HCL 0.5% PF 30 ML VIAL INFILTRATE (14:05)
[2022-04-10] MEDS: LACTATED RINGERS 1,000 ML 30 ML IV CONT (14:40)
--- NOTE | 2022-04-10 14:46 | W.PM.PROC2 ---
Procedure Note - Detailed Date of Procedure 04/10/22 Pre-op Diagnosis Cellulitis of the Second Toe-Right and left Post-op Diagnosis Same Procedure Performed bilateral 2nd toe amputation Surgeon Esa Mei MD Etymology Teacher 1st psychologist research assistant Anesthesia General Indications 42-year-old with inflammatory arthritis in bilateral 2nd toe hypertrophy now with ulceration and infection. Patient has opted for amputation. Description of Procedure Patient identified in the preoperative holding. Informed consent given. Operative extremity marked. Patient received intravenous antibiotics. Patient brought to the operating room where underwent general anesthetic by anesthesia team. Positioned supine on operating room table. Time-out performed confirming the patient, site of the surgery and the plan. Both right and left foot prepped and draped usual sterile surgical fashion using a Betadine prep solution. Left foot exsanguinated with Esmarch bandage and calf tourniquet inflated to 250 mmHg. Local anesthetic with 0.5% Marcaine. Elliptical incision made at the base of the 2nd toe with a 15 blade knife. Hemostasis control electrocautery. Metatarsophalangeal joint incised circumferentially. Toe removed and passed off. Extensor and flexor tendons brought out and transected. Wound thoroughly irrigated. Deep tissue closed with 3-0 Monocryl interrupted suture. Skin repaired with 3-0 nylon interrupted suture. Right foot exsanguinated with Esmarch bandage and calf tourniquet inflated to 250 mmHg. Local anesthetic with 0.5% Marcaine. Elliptical incision made at the base of the 2nd toe with a 15 blade knife. Hemostasis control electrocautery. Metatarsophalangeal joint incised circumferentially. Toe removed and passed off. Extensor and flexor tendons brought out and transected. Wound thoroughly irrigated. Deep tissue closed with 3-0 Monocryl interrupted suture. Skin repaired with 3-0 nylon interrupted suture. Sterile dressing applied. The patient was then woken from anesthesia, extubated and taken to the recovery room in stable condition. All sponge, needle, instrument counts were correct at the end of the case. Estimated Blood Loss 5 Tourniquet Time 30 Drains No Packing No Pathology Other ( right and left 2nd toe gross specimen.) Complications None Condition Stable Disposition PACU
[2022-04-10] MEDS: SENNA/DOCUSATE SODIUM TABLET 2 TAB PO (17:10)
[2022-04-10] MEDS: HYDROcodone/acetaminophen (*CRX) 7.5-325 MG TABLET 2 TAB PO (22:40)
[2022-04-11] VITALS (7 sets, daily range): BP systolic 125–152; BP diastolic 72–83; PULSE 101–110; RESP 16–18; TEMP 36.8–38.7; O2SAT 96–100
[2022-04-11] MEDS: PIPERACILLIN/TAZOBACTAM SOD 4.5 GM in SODIUM CHLORIDE 0.9% IV 100 ML 200 ML IVPB ×3 (05:28→17:03)
[2022-04-11] MEDS: HYDROcodone/acetaminophen (*CRX) 7.5-325 MG TABLET 2 TAB PO (05:39)
[2022-04-11 06:53] LABS: Basophils Percent Auto 0.5 % (0.2-1.2); Eosinophils Absolute Auto 0.2 K/mm3 (0-0.3); Eosinophils Percent Auto 3.5 % (0-4.4); Hematocrit 48.4 % (42.0-52.0); Hemoglobin 15.5 g/dL (14.0-18.0); Immature Granulocyte Absolute 0.03 K/mm3 (0.00-0.031); Immature Granulocyte Percent A 0.5 % (0-0.5); Lymphocytes Absolute Auto 0.59 K/mm3 (0.9-3.2); Lymphocytes Percent Auto 8.9 % (18.3-44.2); Mean Corpuscular Hemoglobin 28.9 pg (26-34); Mean Corpuscular Volume 90.1 fl (80-100); Mean Platelet Volume 9.2 fl (7.4-10.4); Monocytes Absolute Auto 0.7 K/mm3 (0.1-0.6); Neutrophils Absolute Auto 5.1 K/mm3 (1.3-6.7); Neutrophils Percent Auto 76.6 % (45.5-73.1); Platelet Count Result 259 k/mm3 (150-375); Red Blood Count 5.37 M/mm3 (4.6-6.20); Red Cell Distribution Width 11.9 % (11.5-14.5); White Blood Count 6.6 K/mm3 (4.5-10.0)
[2022-04-11 07:15] LABS: Alanine Aminotransferase 111 U/L (6-50); Albumin Level 4.1 g/dL (3.5-5.1); Alkaline Phosphatase 79 U/L (38-126); Anion Gap 13 mmol/L (8-16); Aspartate Amino Transferase 69 U/L (17-59); Bilirubin,Total 0.8 mg/dL (0.2-1.3); Blood Urea Nitrogen 12 mg/dL (9-20); Calcium 8.6 mg/dL (8.4-10.2); Carbon Dioxide 27 mmol/L (22-30); Chloride 96 mmol/L (98-107); Estimated CRCL calculation 107 ml/min; Estimated Glomerular Filt Rate > 60; Glucose 86 mg/dL (65-110); Magnesium 1.9 mg/dL (1.6-2.3); Potassium 4.3 mmol/L (3.4-5.0); Sodium 136 mmol/L (137-145)
--- NOTE | 2022-04-11 07:54 | P.PNAN_ITS ---
Anes - Prog Note Post-Op Date/Time: 04/11/22 07:54 Cardiovascular status: normal Respiratory status: normal Airway patency: baseline Mental status: baseline Post-Op hydration status: normal Vital Signs: Last Vital Signs Temp 37.1 C 04/11/22 05:15 Pulse 109 H 04/11/22 05:15 Resp 18 04/11/22 05:15 BP 125/76 04/11/22 05:15 Pulse Ox 96 04/11/22 05:15 O2 Del Method Room Air 04/10/22 21:45 O2 Flow Rate 6 04/10/22 15:10 Pain Score (VAS): Patient asleep, no nonverbal signs of pain or discomfort I/O: Intake & Output 04/10/22 04/10/22 04/11/22 15:59 23:59 07:59 Intake Total 300 1160 720 Balance 300 1160 720 Laboratory Tests 04/11/22 06:05 04/11/22 06:05 04/10/22 04/11/22 04/11/22 10:30 06:05 06:05 WBC 6.6 RBC 5.37 Hgb 15.5 Hct 48.4 MCV 90.1 MCH 28.9 MCHC 32.0 RDW 11.9 Plt Count 259 MPV 9.2 Immature Gran % (Auto) 0.5 Neut % (Auto) 76.6 H Lymph % (Auto) 8.9 L [place] % (Auto) 10.0 H Eos % (Auto) 3.5 Baso % (Auto) 0.5 Lymph # (Auto) 0.59 L [place] # (Auto) 0.7 H Eos # (Auto) 0.2 Baso # (Auto) 0.0 Abs Immat Gran (auto) 0.03 Absolute Neuts (auto) 5.1 Absolute Nucleated RBC 0.0 Nucleated RBC % 0.0 Sodium 136 L Potassium 4.3 Chloride 96 L Carbon Dioxide 27 Anion Gap 13 BUN 12 D Creatinine 0.90 Estim Creat Clear Calc 107 Estimated GFR > 60 Glucose 86 Calcium 8.6 Magnesium 1.9 Total Bilirubin 0.8 AST 69 H ALT 111 H Alkaline Phosphatase 79 Total Protein 8.0 Albumin 4.1 Vancomycin Trough 9.3 L Microbiology 04/09/22 10:29 Toe Left Second Wound Culture - Preliminary 04/09/22 11:16 Blood Blood Culture - Preliminary 04/09/22 11:21 Blood Blood Culture - Preliminary Post-procedural complaints: none Patient Feedback: Patient satisfied with anesthetic care.
[2022-04-11] MEDS: polyethylene glycoL 3350 17 GM POWD.PACK PO (08:09)
[2022-04-11] MEDS: SENNA/DOCUSATE SODIUM TABLET 2 TAB PO ×2 (08:09→17:03)
--- NOTE | 2022-04-11 09:29 | PM.PNORT ---
Progress Note: A&P Assessment and Plan (1) Ulcer of toe of right foot: Qualifiers: Non-pressure ulcer stage: with necrosis of bone Qualified Code(s): L97.514 - Non-pressure chronic ulcer of other part of right foot with necrosis of bone Code(s): L97.519 - Non-pressure chronic ulcer of other part of right foot with unspecified severity Status: Acute Assessment and Plan: POD #1: Bilateral 2nd toe amputation Daily dressing changes. Post OP shoes. WB on heel. PT/OT for gait training. Pathology from surgery pending. Blood cultures with NGTD. Continue IV antibiotics at this time. Awaiting pathology Follow up for suture removal in 2 weeks. (2) Ulcer of toe of left foot: Qualifiers: Non-pressure ulcer stage: with necrosis of bone Qualified Code(s): L97.524 - Non-pressure chronic ulcer of other part of left foot with necrosis of bone Code(s): L97.529 - Non-pressure chronic ulcer of other part of left foot with unspecified severity Status: Acute (3) Osteomyelitis: Code(s): M86.9 - Osteomyelitis, unspecified Status: Acute Subjective Subjective Date/Time Seen: 04/11/22 09:29 Post Op day: 1 Principal diagnosis: bilateral 2nd toe amputation Interval history: POD #1:bilateral 2nd toe amputation Patient doing well. Mild pain, well controlled. No new concerns. Review of Systems Review of Systems: All systems reviewed & are unremarkable except as noted in HPI and below Exam Const: General: comfortable and no acute distress Resp: Effort & Inspection: normal respiratory effort Cardio: Rate: tachycardic GI: GI Palp: Yes Soft to palpation and No Tenderness to palpation present (GI) Extrem: Other: Incisions well approximated. Mild sanguinous drainage. No surrounding erythema. Psych: Affect: normal affect Objective Data Vital Signs Vital Signs: Vital Signs - 24 hr 04/10/22 12:46 04/10/22 14:40 04/10/22 14:55 Temperature 37.1 C 36.2 C L Pulse Rate 87 74 67 Respiratory Rate 16 19 12 Blood Pressure 145/98 H 117/88 116/88 Pulse Oximetry 98 100 100 Oxygen Delivery Room Air Simple Face Mask Simple Face Mask Oxygen Flow Rate 6 6 04/10/22 15:10 04/10/22 15:18 04/10/22 15:25 Temperature Pulse Rate 67 77 Respiratory Rate 12 14 Blood Pressure 120/93 H 129/88 Pulse Oximetry 100 100 Oxygen Delivery Simple Face Mask Room Air Room Air Oxygen Flow Rate 6 04/10/22 15:33 04/10/22 15:45 04/10/22 16:15 Temperature 35.8 C L 36.1 C L Pulse Rate 72 84 Respiratory Rate 14 14 Blood Pressure 113/84 119/80 Pulse Oximetry 100 97 99 Oxygen Delivery Room Air Oxygen Flow Rate 04/10/22 17:15 04/10/22 20:00 04/10/22 21:45 Temperature 36.1 C L Pulse Rate 82 82 85 Respiratory Rate 14 14 Blood Pressure 122/78 Pulse Oximetry 99 99 95 Oxygen Delivery Room Air Room Air Oxygen Flow Rate 04/10/22 21:15 04/11/22 01:15 04/11/22 05:15 Temperature 36.4 C 37.1 C 37.1 C Pulse Rate 98 109 H 109 H Respiratory Rate 20 18 18 Blood Pressure 134/93 H 125/76 125/76 Pulse Oximetry 100 96 96 Oxygen Delivery Oxygen Flow Rate 04/11/22 08:57 Temperature Pulse Rate Respiratory Rate Blood Pressure Pulse Oximetry Oxygen Delivery Room Air Oxygen Flow Rate Intake/Output Intake/Output: Intake & Output 04/08/22 04/09/22 04/10/22 04/11/22 23:59 23:59 23:59 23:59 Intake Total 2790 2570 820 Balance 2790 2570 820 Meds/Results Medications: Active Medications Generic Name Dose Route Start Last Admin Trade Name Freq PRN Reason Stop Dose Admin Hydrocodone Bitart/Acetaminophen 2 tab 04/10/22 15:30 04/11/22 05:39 Hydrocodone/Acetaminophen (*Crx) 7.5-325 Mg Tablet PO 2 tab Q6H PRN Administration Pain Rated 4-6 Diazepam 5 mg 04/10/22 15:30 Diazepam (*Crx) 5 Mg Tablet PO Q8H PRN Muscle Spasm Piperacillin Sod/Tazobactam 100 mls @ 200 mls/hr 04/10/22 12:00
[2022-04-11] MEDS: ACETAMINOPHEN 325 MG TABLET 650 MG PO (13:34)
[2022-04-11 15:35] LABS: Hepatitis C RNA, Quant PCR 444000 IU/mL
--- NOTE | 2022-04-11 16:23 | PM.IMPN ---
Progress Note: A&P Assessment and Plan (1) Cellulitis of both feet: Code(s): L03.115 - Cellulitis of right lower limb; L03.116 - Cellulitis of left lower limb Status: Acute (2) Osteomyelitis: Code(s): M86.9 - Osteomyelitis, unspecified Status: Acute Plan Bilateral toe ulcers with surrounding cellulitis: iv vancomycin. wound culture obtain which is growing few Gram-negative bacilli and few Gram-positive cocci. Consulted Dr. Sawant. Blood culture x2 remains negative.no hx of recent iv drug use. used ivdrugs 7 years ago as stated by the patient. Will add Zosyn to cover for Gram-negative as well as anaerobes. Toe osteomyelitis noted in xrays. iv vancomycn. may need to add another agent to cover gram negatives, if reasonably can get tissue culture prior to that. Is planned for amputation of bilateral toes. Will add IV Zosyn. Wound culture growing Gram-negative bacilli Gram-positive cocci. Culture pending. 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 No further workup has been. HIV screen negative. Hepatitis profile pending. ESR CRP normal. rheumatoid arthritis factor is negative anti CCP pending [facility] screen pending. Hepatitis C antibody screen did come back reactive. HCV RNA viral load is pending. # positive hepatitis C antibody screen: HCV RNA PCR pending. History of IV drug abuse in the past. #History of IV drug use #DVT prophylaxis Lovenox #Code status full code 04/11/2022 interval history: patient with a bilateral 2nd toes cellulitis and suspicious for osteomyelitis had amputation of the toes POD# 1, patient states is feeling better, seen by Orthopedic Service will have daily dressing patient can walk on heels and postop shoe, later today patient had a fever, ordered blood and urine culture and chest x-ray, will follow-up and further recommendation to follow. patient with history IV drug abuse is positive for hepatitis-C and PCR RNA levels, a significantly elevated patient will need to follow up with sheet metal contractor upon discharge. Subjective Date/time seen: 04/11/22 16:23 Bilateral toe ulcers with surrounding cellulitis: iv vancomycin. wound culture obtain which is growing few Gram-negative bacilli and few Gram-positive cocci. Consulted Dr. Sawant. Blood culture x2 remains negative.no hx of recent iv drug use. used ivdrugs 7 years ago as stated by the patient. Will add Zosyn to cover for Gram-negative as well as anaerobes. Toe osteomyelitis noted in xrays. iv vancomycn. may need to add another agent to cover gram negatives, if reasonably can get tissue culture prior to that. Is planned for amputation of bilateral toes. Will add IV Zosyn. Wound culture growing Gram-negative bacilli Gram-positive cocci. Culture pending. 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 No further workup has been. HIV screen negative. Hepatitis profile pending. ESR CRP normal. rheumatoid arthritis factor is negative anti CCP pending [facility] screen pending. Hepatitis C antibody screen did come back reactive. HCV RNA viral load is pending. # positive hepatitis C antibody screen: HCV RNA PCR pending. History of IV drug abuse in the past. 04/11/2022 interval history: patient with a bilateral 2nd toes cellulitis and suspicious for osteomyelitis had amputation of the toes POD# 1, patient states is feeling better, seen by Orthopedic Service will have daily dressing patient can walk on heels and postop shoe, later today patient had a fever, ordered blood and urine culture and chest x-ray, will follow-up and further recommendation to follow. patient with history IV drug abuse is positive for hepatitis-C and PCR RNA levels, a significantly elevated patient will need to follow up with sheet metal contractor upon discharge. Review of Systems Review of Systems: All systems reviewed & are unremarkable except as noted in HPI and below Exam Narrative: Patient is comfortable, NAD
[2022-04-12] MEDS: PIPERACILLIN/TAZOBACTAM SOD 4.5 GM in SODIUM CHLORIDE 0.9% IV 100 ML 200 ML IVPB ×4 (00:07→16:57)
[2022-04-12 05:55] VITALS: BP 136/93; PULSE 101; RESP 18; TEMP 37.6; O2SAT 98
[2022-04-12 06:33] LABS: Hematocrit 46.4 % (42.0-52.0); Hemoglobin 15.1 g/dL (14.0-18.0); Mean Corpuscular HGB Conc 32.5 g/dl (32-36); Mean Corpuscular Hemoglobin 29.4 pg (26-34); Mean Corpuscular Volume 90.3 fl (80-100); Mean Platelet Volume 8.8 fl (7.4-10.4); Platelet Count Result 233 k/mm3 (150-375); Red Blood Count 5.14 M/mm3 (4.6-6.20); Red Cell Distribution Width 11.9 % (11.5-14.5); White Blood Count 5.8 K/mm3 (4.5-10.0)
[2022-04-12 06:52] LABS: Anion Gap 13 mmol/L (8-16); Blood Urea Nitrogen 12 mg/dL (9-20); Calcium 8.9 mg/dL (8.4-10.2); Carbon Dioxide 28 mmol/L (22-30); Chloride 94 mmol/L (98-107); Estimated CRCL calculation 97 ml/min; Estimated Glomerular Filt Rate > 60; Glucose 87 mg/dL (65-110); Sodium 135 mmol/L (137-145)
[2022-04-12] MEDS: SENNA/DOCUSATE SODIUM TABLET 2 TAB PO ×2 (08:18→16:57)
[2022-04-12] MEDS: polyethylene glycoL 3350 17 GM POWD.PACK PO (08:18)
[2022-04-12] MEDS: SILVERGEL (ELTA) 45 ML 1 APPLIC TOPICAL (08:19)
--- NOTE | 2022-04-12 10:08 | PM.PNORT ---
Progress Note: A&P Assessment and Plan (1) Ulcer of toe of right foot: Qualifiers: Non-pressure ulcer stage: with necrosis of bone Qualified Code(s): L97.514 - Non-pressure chronic ulcer of other part of right foot with necrosis of bone Code(s): L97.519 - Non-pressure chronic ulcer of other part of right foot with unspecified severity Status: Acute Assessment and Plan: POD #2: Bilateral 2nd toe amputation Daily dressing changes. Post OP shoes. WB on heel. PT/OT for gait training. Pathology from surgery pending. Blood cultures with NGTD. Febrile yesterday and today. New BC obtained. WBC normal. Continue IV antibiotics at this time. Awaiting pathology Follow up for suture removal in 2 weeks. (2) Ulcer of toe of left foot: Qualifiers: Non-pressure ulcer stage: with necrosis of bone Qualified Code(s): L97.524 - Non-pressure chronic ulcer of other part of left foot with necrosis of bone Code(s): L97.529 - Non-pressure chronic ulcer of other part of left foot with unspecified severity Status: Acute (3) Osteomyelitis: Code(s): M86.9 - Osteomyelitis, unspecified Status: Acute Subjective Subjective Date/Time Seen: 04/12/22 10:08 Post Op day: 2 Principal diagnosis: bilateral 2nd toe amputation Interval history: POD #2: Bilateral 2nd toe amputation Patient doing well. Mild pain, well controlled. No new concerns. Review of Systems Review of Systems: All systems reviewed & are unremarkable except as noted in HPI and below Exam Const: General: comfortable and no acute distress Resp: Effort & Inspection: normal respiratory effort Cardio: Rate: tachycardic GI: GI Palp: Yes Soft to palpation and No Tenderness to palpation present (GI) Extrem: Other: Incisions well approximated. Mild sanguinous drainage. No surrounding erythema. Psych: Affect: normal affect Objective Data Vital Signs Vital Signs: Vital Signs - 24 hr 04/11/22 13:34 04/11/22 13:15 04/11/22 17:48 Temperature 38.7 C H 38.7 C H 37.3 C Pulse Rate 110 H Respiratory Rate 18 Blood Pressure 152/83 H Pulse Oximetry 100 Oxygen Delivery 04/11/22 20:15 04/11/22 22:00 04/12/22 05:55 Temperature 37.7 C H 37.6 C H Pulse Rate 108 H 101 H Respiratory Rate 18 18 Blood Pressure 129/72 136/93 H Pulse Oximetry 97 98 Oxygen Delivery Room Air Intake/Output Intake/Output: Intake & Output 04/09/22 04/10/22 04/11/22 04/12/22 23:59 23:59 23:59 23:59 Intake Total 2790 2570 2150 660 Output Total 325 Balance 2790 2570 1825 660 Meds/Results Medications: Active Medications Generic Name Dose Route Start Last Admin Trade Name Freq PRN Reason Stop Dose Admin Acetaminophen 650 mg 04/11/22 13:25 04/11/22 13:34 Acetaminophen 325 Mg Tablet PO 650 mg Q6H PRN Administration Mild Pain (1-3) or Fever Hydrocodone Bitart/Acetaminophen 2 tab 04/10/22 15:30 04/11/22 05:39 Hydrocodone/Acetaminophen (*Crx) 7.5-325 Mg Tablet PO 2 tab Q6H PRN Administration Pain Rated 4-6 Diazepam 5 mg 04/10/22 15:30 Diazepam (*Crx) 5 Mg Tablet PO Q8H PRN Muscle Spasm Piperacillin Sod/Tazobactam 100 mls @ 200 mls/hr 04/10/22 12:00 04/12/22 06:12 Sod 4.5 gm/ Sodium Chloride IVPB 200 mls/hr Q6HR MAYNOR Administration Vancomycin HCl 1,500 mg in 500 mls @ 333.333 mls/hr 04/11/22 00:00 04/12/22 00:09 Vancomycin 1,500 Mg/D5w 500 Ml IVPB 333 mls/hr Q12H MAYNOR Administration Ondansetron HCl 4 mg 04/10/22 15:30 Ondansetron Inj 4 Mg/2 Ml Vial IV PUSH Q4H PRN Nausea And Vomiting Polyethylene Glycol 17 gm 04/11/22 09:00 04/12/22 08:18 Polyethylene Glycol 3350 17 Gm Powd.Pack PO 17 gm QAM MAYNOR Administration Senna/Docusate Sodium 2 tab 04/10/22 17:00 04/12/22 08:18 Senna/Docusate Sodium Tablet PO 2 tab BID MAYNOR Administration Silver Nitrate 1 applic 04/09/22 09:00 04/12/22 08:19
[2022-04-12 11:52] LABS: Vancomycin Trough 8.5 ug/mL (10.0-20.0)
[2022-04-12 11:53] LABS: Anti Cyclic Citrullinated Pept <16 Units (<20)
--- NOTE | 2022-04-12 13:09 | PC.NURSE ---
Called pharmacy around 11:20 due to missing 1200 antibiotics. They stated they are sending them up. Still no meds sent by 12:30 called again and [facility] stated they are sending them up.
--- NOTE | 2022-04-12 13:45 | PM.IMPN ---
Progress Note: A&P Assessment and Plan (1) Cellulitis of both feet: Code(s): L03.115 - Cellulitis of right lower limb; L03.116 - Cellulitis of left lower limb Status: Acute (2) Osteomyelitis: Code(s): M86.9 - Osteomyelitis, unspecified Status: Acute Plan Bilateral toe ulcers with surrounding cellulitis: iv vancomycin. wound culture obtain which is growing few Gram-negative bacilli and few Gram-positive cocci. Consulted Dr. Sawant. Blood culture x2 remains negative.no hx of recent iv drug use. used ivdrugs 7 years ago as stated by the patient. Will add Zosyn to cover for Gram-negative as well as anaerobes. Toe osteomyelitis noted in xrays. iv vancomycn. may need to add another agent to cover gram negatives, if reasonably can get tissue culture prior to that. Is planned for amputation of bilateral toes. Will add IV Zosyn. Wound culture growing Gram-negative bacilli Gram-positive cocci. Culture pending. 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 No further workup has been. HIV screen negative. Hepatitis profile pending. ESR CRP normal. rheumatoid arthritis factor is negative anti CCP pending [facility] screen pending. Hepatitis C antibody screen did come back reactive. HCV RNA viral load is pending. # positive hepatitis C antibody screen: HCV RNA PCR pending. History of IV drug abuse in the past. #History of IV drug use #DVT prophylaxis Lovenox #Code status full code 04/12/2022 interval history: patient with a bilateral 2nd toes cellulitis and suspicious for osteomyelitis had amputation of the toes POD# 2, patient states is feeling better, seen by Orthopedic Service will have daily dressing patient can walk on heels and postop shoe, later on 04/11 patient had a fever, ordered blood and urine culture and chest x-ray, chest x-ray is negative for any acute pulmonary, today agoain patient has fever, blood and urine cultures are still pending, will follow-up and further recommendation to follow. patient with history IV drug abuse is positive for hepatitis-C and PCR RNA levels, are significantly elevated patient will need to follow up with print machine operator upon discharge. Subjective Date/time seen: 04/12/22 13:45 Bilateral toe ulcers with surrounding cellulitis: iv vancomycin. wound culture obtain which is growing few Gram-negative bacilli and few Gram-positive cocci. Consulted Dr. Sawant. Blood culture x2 remains negative.no hx of recent iv drug use. used ivdrugs 7 years ago as stated by the patient. Will add Zosyn to cover for Gram-negative as well as anaerobes. Toe osteomyelitis noted in xrays. iv vancomycn. may need to add another agent to cover gram negatives, if reasonably can get tissue culture prior to that. Is planned for amputation of bilateral toes. Will add IV Zosyn. Wound culture growing Gram-negative bacilli Gram-positive cocci. Culture pending. 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 No further workup has been. HIV screen negative. Hepatitis profile pending. ESR CRP normal. rheumatoid arthritis factor is negative anti CCP pending [facility] screen pending. Hepatitis C antibody screen did come back reactive. HCV RNA viral load is pending. # positive hepatitis C antibody screen: HCV RNA PCR pending. History of IV drug abuse in the past. #History of IV drug use #DVT prophylaxis Lovenox #Code status full code 04/12/2022 interval history: patient with a bilateral 2nd toes cellulitis and suspicious for osteomyelitis had amputation of the toes POD# 2, patient states is feeling better, seen by Orthopedic Service will have daily dressing patient can walk on heels and postop shoe, later on 04/11 patient had a fever, ordered blood and urine culture and chest x-ray, chest x-ray is negative for any acute pulmonary, today agoain patient has fever, blood and urine cultures are still pending, will follow-up and further recommendation to follow. patient
[2022-04-12 14:00] VITALS: BP 133/88; PULSE 98; RESP 20; TEMP 37; O2SAT 99
[2022-04-12 21:10] VITALS: BP 128/85; PULSE 96; RESP 18; TEMP 36.9; O2SAT 98
[2022-04-13] MEDS: PIPERACILLIN/TAZOBACTAM SOD 4.5 GM in SODIUM CHLORIDE 0.9% IV 100 ML 200 ML IVPB ×4 (00:09→17:02)
[2022-04-13] MEDS: HYDROcodone/acetaminophen (*CRX) 7.5-325 MG TABLET 2 TAB PO (00:40)
[2022-04-13 06:00] VITALS: BP 133/84; PULSE 86; RESP 16; TEMP 36.6; O2SAT 99
[2022-04-13] MEDS: SILVERGEL (ELTA) 45 ML 1 APPLIC TOPICAL (08:13)
[2022-04-13] MEDS: SENNA/DOCUSATE SODIUM TABLET 2 TAB PO ×2 (08:13→17:03)
[2022-04-13 08:39] LABS: Hemoglobin 14.5 g/dL (14.0-18.0); Mean Corpuscular HGB Conc 32.2 g/dl (32-36); Mean Corpuscular Hemoglobin 28.9 pg (26-34); Mean Corpuscular Volume 89.8 fl (80-100); Platelet Count Result 244 k/mm3 (150-375); Red Blood Count 5.01 M/mm3 (4.6-6.20); Red Cell Distribution Width 11.9 % (11.5-14.5); White Blood Count 4.4 K/mm3 (4.5-10.0)
[2022-04-13 08:48] LABS: Anion Gap 9 mmol/L (8-16); Blood Urea Nitrogen 14 mg/dL (9-20); Calcium 8.6 mg/dL (8.4-10.2); Carbon Dioxide 28 mmol/L (22-30); Chloride 98 mmol/L (98-107); Estimated CRCL calculation 97 ml/min; Estimated Glomerular Filt Rate > 60; Glucose 89 mg/dL (65-110); Potassium 3.9 mmol/L (3.4-5.0); Sodium 135 mmol/L (137-145)
--- NOTE | 2022-04-13 14:11 | PM.IMPN ---
Progress Note: A&P Assessment and Plan (1) Cellulitis of both feet: Code(s): L03.115 - Cellulitis of right lower limb; L03.116 - Cellulitis of left lower limb Status: Acute (2) Osteomyelitis: Code(s): M86.9 - Osteomyelitis, unspecified Status: Acute Plan Bilateral toe ulcers with surrounding cellulitis: iv vancomycin. wound culture obtain which is growing few Gram-negative bacilli and few Gram-positive cocci. Consulted Dr. Sawant. Blood culture x2 remains negative.no hx of recent iv drug use. used ivdrugs 7 years ago as stated by the patient. Will add Zosyn to cover for Gram-negative as well as anaerobes. Toe osteomyelitis noted in xrays. iv vancomycn. may need to add another agent to cover gram negatives, if reasonably can get tissue culture prior to that. Is planned for amputation of bilateral toes. Will add IV Zosyn. Wound culture growing Gram-negative bacilli Gram-positive cocci. Culture pending. 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 No further workup has been. HIV screen negative. Hepatitis profile pending. ESR CRP normal. rheumatoid arthritis factor is negative anti CCP pending [facility] screen pending. Hepatitis C antibody screen did come back reactive. HCV RNA viral load is pending. # positive hepatitis C antibody screen: HCV RNA PCR pending. History of IV drug abuse in the past. #History of IV drug use #DVT prophylaxis Lovenox #Code status full code 04/13/2022 interval history: patient with a bilateral 2nd toes cellulitis and suspicious for osteomyelitis had amputation of the toes POD# 2, patient states is feeling better, seen by Orthopedic Service will have daily dressing patient can walk on heels and postop shoe, later on 04/11 patient had a fever, ordered blood and urine culture and chest x-ray, chest x-ray is negative for any acute pulmonary, on 04/12 again patient had fever however patient is afebrile for 24 hours, blood and urine cultures are still pending, will continue to monitor, will follow-up and further recommendation to follow. patient with history IV drug abuse is positive for hepatitis-C and PCR RNA levels, are significantly elevated patient will need to follow up with proc tech upon discharge. Subjective Date/time seen: 04/13/22 14:11 04/13/2022 interval history: patient with a bilateral 2nd toes cellulitis and suspicious for osteomyelitis had amputation of the toes POD# 2, patient states is feeling better, seen by Orthopedic Service will have daily dressing patient can walk on heels and postop shoe, later on 04/11 patient had a fever, ordered blood and urine culture and chest x-ray, chest x-ray is negative for any acute pulmonary, on 04/12 again patient had fever however patient is afebrile for 24 hours, blood and urine cultures are still pending, will continue to monitor, will follow-up and further recommendation to follow. patient with history IV drug abuse is positive for hepatitis-C and PCR RNA levels, are significantly elevated patient will need to follow up with proc tech upon discharge. Review of Systems Review of Systems: All systems reviewed & are unremarkable except as noted in HPI and below Exam Narrative: Patient is comfortable, NAD HEENT: eyes are clear and none icteric LUNGS: normal respiratory effort ABD: not distended Lower extremities: no edema MS: bilateral feet and wound dressing SKIN: nonjaundiced Neuro: grossly intact. Objective Data Vital Signs Vital Signs: Vital Signs - 24 hr 04/12/22 21:10 04/13/22 06:00 04/13/22 08:35 Temperature 98.4 F 97.9 F Pulse Rate 96 86 Respiratory Rate 18 16 Blood Pressure 128/85 133/84 Pulse Oximetry 98 99 Oxygen Delivery Room Air Intake/Output Intake/Output: Intake & Output 04/10/22 04/11/22 04/12/22 04/13/22 23:59 23:59 23:59 23:59 Intake Total 2570 2150 2880 1900 Output Total 325 Balance 2570 1825 2880 1900 Meds/Resul
[2022-04-13 22:00] VITALS: BP 120/75; PULSE 81; RESP 14; TEMP 36.4; O2SAT 99
[2022-04-13] MEDS: PIPERACILLIN/TAZOBACTAM SOD 4.5 GM in SODIUM CHLORIDE 0.9% IV 100 ML 125 ML IVPB (23:39)
[2022-04-14] MEDS: PIPERACILLIN/TAZOBACTAM SOD 4.5 GM in SODIUM CHLORIDE 0.9% IV 100 ML 125 ML IVPB ×3 (05:08→17:03)
[2022-04-14 05:51] VITALS: BP 125/75; PULSE 80; RESP 14; TEMP 36.8; O2SAT 100
[2022-04-14 06:52] LABS: Hematocrit 46.8 % (42.0-52.0); Hemoglobin 15.1 g/dL (14.0-18.0); Mean Corpuscular HGB Conc 32.3 g/dl (32-36); Mean Corpuscular Hemoglobin 29.2 pg (26-34); Mean Corpuscular Volume 90.5 fl (80-100); Mean Platelet Volume 8.9 fl (7.4-10.4); Platelet Count Result 239 k/mm3 (150-375); Red Blood Count 5.17 M/mm3 (4.6-6.20); Red Cell Distribution Width 11.9 % (11.5-14.5); White Blood Count 4.3 K/mm3 (4.5-10.0)
[2022-04-14 07:04] LABS: Anion Gap 11 mmol/L (8-16); Blood Urea Nitrogen 13 mg/dL (9-20); Calcium 8.5 mg/dL (8.4-10.2); Carbon Dioxide 29 mmol/L (22-30); Chloride 98 mmol/L (98-107); Estimated CRCL calculation 107 ml/min; Estimated Glomerular Filt Rate > 60; Glucose 88 mg/dL (65-110); Potassium 3.8 mmol/L (3.4-5.0); Sodium 138 mmol/L (137-145)
[2022-04-14] MEDS: SILVERGEL (ELTA) 45 ML 1 APPLIC TOPICAL (08:33)
[2022-04-14] MEDS: HYDROcodone/acetaminophen (*CRX) 7.5-325 MG TABLET 2 TAB PO (08:36)
--- NOTE | 2022-04-14 10:20 | PM.IMPN ---
Progress Note: A&P Assessment and Plan (1) Cellulitis of both feet: Code(s): L03.115 - Cellulitis of right lower limb; L03.116 - Cellulitis of left lower limb Status: Acute (2) Osteomyelitis: Code(s): M86.9 - Osteomyelitis, unspecified Status: Acute Plan Bilateral toe ulcers with surrounding cellulitis: iv vancomycin. wound culture obtain which is growing few Gram-negative bacilli and few Gram-positive cocci. Consulted Dr. Sawant. Blood culture x2 remains negative.no hx of recent iv drug use. used ivdrugs 7 years ago as stated by the patient. Will add Zosyn to cover for Gram-negative as well as anaerobes. Toe osteomyelitis noted in xrays. iv vancomycn. may need to add another agent to cover gram negatives, if reasonably can get tissue culture prior to that. Is planned for amputation of bilateral toes. Will add IV Zosyn. Wound culture growing Gram-negative bacilli Gram-positive cocci. Culture pending. 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 No further workup has been. HIV screen negative. Hepatitis profile pending. ESR CRP normal. rheumatoid arthritis factor is negative anti CCP pending [facility] screen pending. Hepatitis C antibody screen did come back reactive. HCV RNA viral load is pending. # positive hepatitis C antibody screen: HCV RNA PCR pending. History of IV drug abuse in the past. #History of IV drug use #DVT prophylaxis Lovenox #Code status full code 04/14/2022 interval history: patient with a bilateral 2nd toes cellulitis and suspicious for osteomyelitis had amputation of the toes POD# 4, patient states is feeling better, seen by Orthopedic Service will have daily dressing patient can walk on heels and postop shoe, later on 04/11 patient had a fever, ordered blood and urine culture and chest x-ray, chest x-ray is negative for any acute pulmonary, on 04/12 again patient had fever however patient is afebrile for 48 hours, blood and urine cultures are still pending, will continue to monitor, will follow-up and further recommendation to follow. patient with history IV drug abuse is positive for hepatitis-C and PCR RNA levels are significantly elevated patient will need to follow up with rn faculty upon discharge. Subjective Date/time seen: 04/14/22 10:04/14/2022 interval history: patient with a bilateral 2nd toes cellulitis and suspicious for osteomyelitis had amputation of the toes POD# 4, patient states is feeling better, seen by Orthopedic Service will have daily dressing patient can walk on heels and postop shoe, later on 04/11 patient had a fever, ordered blood and urine culture and chest x-ray, chest x-ray is negative for any acute pulmonary, on 04/12 again patient had fever however patient is afebrile for 48 hours, blood and urine cultures are still pending, will continue to monitor, will follow-up and further recommendation to follow. patient with history IV drug abuse is positive for hepatitis-C and PCR RNA levels are significantly elevated patient will need to follow up with rn faculty upon discharge. Review of Systems Review of Systems: All systems reviewed & are unremarkable except as noted in HPI and below Exam Narrative: Patient is comfortable, NAD HEENT: eyes are clear and none icteric LUNGS: normal respiratory effort ABD: not distended Lower extremities: no edema MS: bilateral feet and wound dressing SKIN: nonjaundiced Neuro: grossly intact. Objective Data Vital Signs Vital Signs: Vital Signs - 24 hr 04/13/22 20:45 04/13/22 22:00 04/14/22 05:51 Temperature 97.5 F L 98.2 F Pulse Rate 81 80 Respiratory Rate 14 14 Blood Pressure 120/75 125/75 Pulse Oximetry 99 100 Oxygen Delivery Room Air 04/14/22 08:45 Temperature Pulse Rate Respiratory Rate Blood Pressure Pulse Oximetry Oxygen Delivery Room Air Intake/Output Intake/Output: Intake & Output 04/11/22 04/12/22 04/13/22
[2022-04-14 15:24] VITALS: BP 122/79; PULSE 84; RESP 14; TEMP 36.2; O2SAT 97
[2022-04-14 22:00] VITALS: BP 132/100; PULSE 104; RESP 20; TEMP 36.6; O2SAT 100
[2022-04-15 00:21] VITALS: BP 115/80
[2022-04-15] MEDS: PIPERACILLIN/TAZOBACTAM SOD 4.5 GM in SODIUM CHLORIDE 0.9% IV 100 ML 200 ML IVPB ×3 (00:39→12:29)
[2022-04-15 06:00] VITALS: BP 122/87; PULSE 90; RESP 18; TEMP 36.6; O2SAT 100
[2022-04-15 07:20] LABS: Hematocrit 42.4 % (42.0-52.0); Hemoglobin 13.6 g/dL (14.0-18.0); Mean Corpuscular HGB Conc 32.1 g/dl (32-36); Mean Corpuscular Volume 90.4 fl (80-100); Platelet Count Result 238 k/mm3 (150-375); Red Blood Count 4.69 M/mm3 (4.6-6.20); Red Cell Distribution Width 11.9 % (11.5-14.5); White Blood Count 4.4 K/mm3 (4.5-10.0)
[2022-04-15 07:47] LABS: Anion Gap 11 mmol/L (8-16); Blood Urea Nitrogen 14 mg/dL (9-20); Calcium 8.5 mg/dL (8.4-10.2); Carbon Dioxide 28 mmol/L (22-30); Chloride 98 mmol/L (98-107); Estimated CRCL calculation 119 ml/min; Estimated Glomerular Filt Rate > 60; Glucose 86 mg/dL (65-110); Potassium 4.1 mmol/L (3.4-5.0); Sodium 137 mmol/L (137-145)
[2022-04-15 10:57] VITALS: BP 118/85; PULSE 89; RESP 20; TEMP 37; O2SAT 99
--- NOTE | 2022-04-15 12:57 | PM.DS ---
DS: Admitting Diagnosis Discharge Date 04/15/2022 Admitting Diagnosis toe infection DS: Discharge Diagnosis Discharge Diagnosis (1) Cellulitis of both feet: Code(s): L03.115 - Cellulitis of right lower limb; L03.116 - Cellulitis of left lower limb Status: Acute (2) Osteomyelitis: Code(s): M86.9 - Osteomyelitis, unspecified Status: Acute Plan Bilateral toe ulcers with surrounding cellulitis: iv vancomycin. wound culture obtain which is growing few Gram-negative bacilli and few Gram-positive cocci. Consulted Dr. Sawant. Blood culture x2 remains negative.no hx of recent iv drug use. used ivdrugs 7 years ago as stated by the patient. Will add Zosyn to cover for Gram-negative as well as anaerobes. Toe osteomyelitis noted in xrays. iv vancomycn. may need to add another agent to cover gram negatives, if reasonably can get tissue culture prior to that. Is planned for amputation of bilateral toes. Will add IV Zosyn. Wound culture growing Gram-negative bacilli Gram-positive cocci. Culture pending. 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 No further workup has been. HIV screen negative. Hepatitis profile pending. ESR CRP normal. rheumatoid arthritis factor is negative anti CCP pending [facility] screen pending. Hepatitis C antibody screen did come back reactive. HCV RNA viral load is pending. # positive hepatitis C antibody screen: HCV RNA PCR pending. History of IV drug abuse in the past. #History of IV drug use #DVT prophylaxis Lovenox #Code status full code 04/14/2022 interval history: patient with a bilateral 2nd toes cellulitis and suspicious for osteomyelitis had amputation of the toes POD# 4, patient states is feeling better, seen by Orthopedic Service will have daily dressing patient can walk on heels and postop shoe, later on 04/11 patient had a fever, ordered blood and urine culture and chest x-ray, chest x-ray is negative for any acute pulmonary, on 04/12 again patient had fever however patient is afebrile for 48 hours, blood and urine cultures are still pending, will continue to monitor, will follow-up and further recommendation to follow. patient with history IV drug abuse is positive for hepatitis-C and PCR RNA levels are significantly elevated patient will need to follow up with seating upholsterer upon discharge. DS: Summary Hospital Course Reason for hospitalization: Chief Complaint: ?toe infection Narrative: Patient is a 42-year-old male who prsents to the hospital with 2 weeks of ulceration and drainage of bilateral second toes. he reports he has chronic swelling of his bailteral second two for years but has not been draining until two week back. he rperots no swelling. no fever, chlls. no nausea, vomiting. abdomina lpain. he feels the swelling has increased since this and also feels soreness in his legs. right more than left.he used to use iv drugs in the past but last use was 7 years ago. ? Hospital Course: Bilateral toe ulcers with surrounding cellulitis: iv vancomycin.? wound culture? obtain which is growing few Gram-negative bacilli and few Gram-positive cocci.? Consulted Dr. Sawant.? Blood culture x2 remains negative.no hx of recent iv drug use. used ivdrugs 7 years ago as stated by the patient.? Will add Zosyn to cover for Gram-negative as well as anaerobes. Toe osteomyelitis noted in xrays. iv vancomycn. may need to add another agent to cover gram negatives, if reasonably can get tissue culture prior to that.? Is planned for amputation of bilateral toes.? Will add IV Zosyn.? Wound culture growing Gram-negative bacilli Gram-positive cocci.? Culture pending. 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 No further workup has been.? HIV screen negative.? Hepatitis profile pending.? ESR CRP? normal. ? rheumatoid arthritis factor is negative anti CCP pending [facility] screen pending.? Hepatitis C antibody screen did come back reactive.? HCV RNA viral load
== END 2022-04-15 13:40 | disposition home or self-care (01) | DRG 314 ==
LOC: ANHED 04-09 03:47 → ANH3MEDSUR 04-09 04:01
PROVIDERS: Internal Medicine; Orthopaedic Surgery; Physician Assistant; Admitting Provider Internal Medicine; Emergency Provider Emergency Medicine; Visit Provider Family Medicine
PROC: 0Y6S0Z0 Detachment at Left 2nd Toe, Complete, Open Approach (ICD-10-PCS; principal; 2022-04-10 13:30)
DX: M86.172 Other acute osteomyelitis, left ankle and foot (principal); L03.115 Cellulitis of right lower limb; L03.116 Cellulitis of left lower limb; M86.171 Other acute osteomyelitis, right ankle and foot; Z87.891 Personal history of nicotine dependence; B96.89 Other specified bacterial agents as the cause of diseases classified elsewhere; F14.10 Cocaine abuse, uncomplicated; B19.20 Unspecified viral hepatitis C without hepatic coma; Z20.822 Contact with and (suspected) exposure to COVID-19
CPT/HCPCS: 36415; 71046; 73660; 80048; 80053; 80074; 80202; 82948; 83605; 83735; 84550; 85025; 85027; 85652; 86038; 86140; 86200; 86430; 86703; 87040; 87070; 87077; 87086; 87186; 87205; 87522; 88305; 88311; 96361; 96365; 96366; 97110; 97116; 97161; 97165; 99285; A9270; G0378; G0432; J2250; J2405; J2543; J2704; J3010; J3370; J7030; J7120; U0003; U0005

== ENCOUNTER 2022-04-23 09:10 | Outpatient (RCR) | payer MEDICAID, SELFPAY ==
--- NOTE | 2022-04-23 09:32 | PM.PNORT ---
Progress Note: A&P Assessment and Plan (1) Ulcer of toe of right foot: Qualifiers: Non-pressure ulcer stage: with necrosis of bone Qualified Code(s): L97.514 - Non-pressure chronic ulcer of other part of right foot with necrosis of bone Code(s): L97.519 - Non-pressure chronic ulcer of other part of right foot with unspecified severity Status: Acute Assessment and Plan: Bilateral 2nd toe amputations. Incisions well approximated. Sutures removed today. No open wounds or dehiscence noted. Some maceration to the left 2nd ray amp site. Recommended transfer and cover dry with gauze daily. Follow up in 2 weeks. Patient has obtained his own OTC orthotics. Requires steel toe boots for work. Not interested in custom orthotics. (2) Ulcer of toe of left foot: Qualifiers: Non-pressure ulcer stage: with necrosis of bone Qualified Code(s): L97.524 - Non-pressure chronic ulcer of other part of left foot with necrosis of bone Code(s): L97.529 - Non-pressure chronic ulcer of other part of left foot with unspecified severity Status: Acute Subjective Subjective Date/Time Seen: 04/23/22 09:32 Interval history: 1 week, 6 days s/p bilateral 2nd toe amputation Patient doing well. No signs of infection. Tolerating dressing changes well. No new concerns. Review of Systems Review of Systems: All systems reviewed & are unremarkable except as noted in HPI and below Exam Const: General: comfortable and no acute distress Resp: Effort & Inspection: normal respiratory effort Cardio: Rate: tachycardic GI: GI Palp: Yes Soft to palpation and No Tenderness to palpation present (GI) Extrem: Other: Incisions well approximated. Mild sanguinous drainage LEFt foot only. No surrounding erythema. Psych: Affect: normal affect
[2022-04-23 13:16] VITALS: BMI 23.6
== END 2022-07-05 15:49 | disposition home or self-care (01) ==
LOC: ANHWOC 09:10
PROVIDERS: Visit Provider Nurse Practitioner Family
DX: Z47.81 Encounter for orthopedic aftercare following surgical amputation (principal); Z89.422 Acquired absence of other left toe(s); Z89.421 Acquired absence of other right toe(s)
CPT/HCPCS: 99213; G0463

== ENCOUNTER 2024-03-09 21:56 | Observation (INO) | payer OTHER, SELFPAY ==
--- NOTE | ~2024-03-09 | US_ITS ---
EXAMINATION: US venous doppler [facility] DATE: 03/10/2024 10:00 INDICATION: Left lower limb swelling. TECHNIQUE: Grayscale ultrasound images without and with compression and Doppler ultrasound images of the left lower extremity veins were obtained. COMPARISON: CT abdomen pelvis 05/21/21 FINDINGS: The visualized portions of left common femoral vein, profunda (deep) femoral vein, femoral vein, popl iteal vein, peroneal veins, posterior tibial veins, and greater saphenous vein outflow are patent. Th ere is a 4.0 x 1.7 cm left inguinal lymph node. IMPRESSION: 1. No deep venous thrombosis. 2. Mildly enlarged left inguinal lymph node, which may be reactive. Reviewed, dictated and finalized at location A.
[2024-03-09 22:45] VITALS: BP 123/78; PULSE 127; RESP 20; TEMP 37.5; O2SAT 98
[2024-03-09 23:44] VITALS: BP 144/90; PULSE 115; RESP 15; TEMP 37.7; O2SAT 100
--- NOTE | 2024-03-09 23:49 | ED.EXTPRO ---
HPI - Extremity Problem General Chief complaint: Extremity Problem,Nontraumatic Stated complaint: Left swollen Time Seen by Provider: 03/09/24 23:34 History of Present Illness HPI Narrative: 44-year-old male present to the emergency department for evaluation for left lower extremity erythema that started approximately 2 days ago. Patient does have prior history of cellulitis. Patient denies any current IV drug use. Patient denies any active underlying medical issues. Patient does have prior history of staph infection which led to the amputation his 2nd toes bilateral feet. Patient states he does her prior history of IV drug abuse but is no longer an IV drug user and states this but infection to his leg is not secondary to IV drugs. Related Data Home Medications Medication Instructions Recorded Confirmed No Home Medications 03/10/24 03/10/24 Allergies Allergy/AdvReac Type Severity Reaction Status Date / Time No Known Allergies Allergy Verified 03/10/24 00:45 Review of Systems Review of Systems: All systems reviewed & are unremarkable except as noted in HPI and below PMFSH Past Medical History Medical History IV drug user Ulcer of toe of left foot Ulcer of toe of right foot Family History Family History (Updated 03/10/24 @ 01:14 by Rina Smith RN) Grandparent Testicular cancer Social History Social History Smoking packs per day: 0.5 Smoking cigarettes per day: 10.0 Smoking status: Former smoker Tobacco type: cigarettes Smoking end date: 04/09/19 Alcohol intake: never Substance use: former Substance use type: crack/cocaine Last use: 04/06/2022 Do You Feel Safe in your Home?: Yes Lack of Transportation: No Lack of Food: Never True Current Housing: I Have Housing Concerned About Future Housing: No Difficulty Paying Gas/Electric Bills: No Difficulty Paying for Meds: No Currently Unemployed: No Education: High School Diploma/GED Difficulty w/ Childcare or Family Care: No Spiritual care concerns: No Exam Narrative: APPEARANCE: Well appearing, no pain, no distress, well-nourished. HEAD: normocephalic, atraumatic. EYES: PERRLA/EOMI, conjunctivae clear. NOSE: Normal no drainage EARS:TMS clear with good light reflex. THROAT: Pharynx clear, no exudate. NECK: Supple. No adenopathy, no masses. RESPIRATORY: Airway patent, respirations nonlabored. Clear to auscultation bilaterally, no rales, rhonchi, wheezing. CARDIOVASCULAR: Regular rate and rhythm without murmurs rubs or gallops. ABDOMINAL: Soft, nontender, nondistended, normal bowel sounds MUSCULOSKELETAL: Moves all extremities. Strength/ROM intact, No edema, No calf tenderness. NEURO: Alert. Cranial nerves II through XII intact. Good gait. Good coordination SKIN: Left lower extremity cellulitis that is circumferential around the lower leg Course Course Emergency Course: Patient was admitted for cellulitis Vital Signs Vital signs: Vital Signs Temperature 99.5 F 03/09/24 22:45 Pulse Rate 127 H 03/09/24 22:45 Respiratory Rate 20 03/09/24 22:45 Blood Pressure 123/78 03/09/24 22:45 Pulse Oximetry 98 03/09/24 22:45 Temperature 99.2 F 03/10/24 05:05 Pulse Rate 100 03/10/24 05:05 Respiratory Rate 16 03/10/24 05:05 Blood Pressure 114/61 03/10/24 05:05 Pulse Oximetry 100 03/10/24 05:05 Oxygen Delivery Room Air 03/10/24 01:51 MDM - Extremity (Nontraumatic) MDM Narrative Medical decision making narrative: 44-year-old male presenting to the emergency department for evaluation for 2 days of left lower extremity swelling. Patient has no prior history of PE or DVT but does have prior history of cellulitis. Patient arrived with a heart rate of 130 and this did improve with rehydration. Patient did have a low-grade fever on arrival. Patient has
[2024-03-10] MEDS: SODIUM CHLORIDE 0.9% IV 2,700 ML/1,000 ML BAG 999 ML IV CONT ×2 (00:16→00:55)
[2024-03-10 00:17] LABS: Basophils Absolute Auto 0.1 K/mm3 (0.0-0.1); Basophils Percent Auto 0.4 % (0.2-1.2); Eosinophils Percent Auto 0.1 % (0-4.4); Hematocrit 39.9 % (42.0-52.0); Hemoglobin 13.4 g/dL (14.0-18.0); Immature Granulocyte Absolute 0.09 K/mm3 (0.00-0.031); Immature Granulocyte Percent A 0.6 % (0-0.5); Lymphocytes Percent Auto 8.4 % (18.3-44.2); Mean Corpuscular HGB Conc 33.6 g/dl (32-36); Mean Corpuscular Hemoglobin 30.1 pg (26-34); Mean Corpuscular Volume 89.7 fl (80-100); Mean Platelet Volume 9.3 fl (7.4-10.4); Monocytes Absolute Auto 1.5 K/mm3 (0.1-0.6); Monocytes Percent Auto 9.7 % (2.6-8.5); Neutrophils Absolute Auto 12.5 K/mm3 (1.3-6.7); Neutrophils Percent Auto 80.8 % (45.5-73.1); Platelet Count Result 217 k/mm3 (150-375); Red Blood Count 4.45 M/mm3 (4.6-6.20); Red Cell Distribution Width 11.9 % (11.5-14.5); White Blood Count 15.4 K/mm3 (4.5-10.0)
[2024-03-10] MEDS: ceFAZolin 1 GM/NS 50 ML 1 GM/50 ML BAG IVPB ×4 (00:17→23:42)
[2024-03-10 00:27] LABS: Lactic Acid Reflex 1.6 mmol/L (0.7-2.0)
[2024-03-10 00:29] LABS: INR 1.2; Prothrombin Time 15.6 Seconds (11.1-14.7)
--- NOTE | 2024-03-10 00:33 | PM.IMHP ---
H&P: HPI History of Present Illness Date/Time: 03/10/24 00:33 Chief Complaint: LLE tenderness Narrative: This is a 44-year-old male with past medical history significant for polysubstance abuse patient currently uses ice denies the use of IV drugs quit smoking since 19/12, Bilateral 2nd toe amputations. Patient presents to the emergency room due to left lower extremity redness swelling of 3 days with generalized malaise, chills. preliminary workup was significant for leukocyte count of 15,000. patient has been started on cefazolin and vancomycin admitted to regular medical floor. Review of Systems Review of Systems: Left lower extremity swelling, redness, tenderness ,generalized malaise ,chills. [facility] Past Medical History Medical History IV drug user Ulcer of toe of left foot Ulcer of toe of right foot Family History Family History (Updated 03/10/24 @ 01:14 by Rina Smith RN) Grandparent Testicular cancer Social History Social History Smoking packs per day: 0.5 Smoking cigarettes per day: 10.0 Smoking status: Former smoker Tobacco type: cigarettes Smoking end date: 04/09/19 Alcohol intake: never Substance use: former Substance use type: crack/cocaine Last use: 04/06/2022 Do You Feel Safe in your Home?: Yes Lack of Transportation: No Lack of Food: Never True Current Housing: I Have Housing Concerned About Future Housing: No Difficulty Paying Gas/Electric Bills: No Difficulty Paying for Meds: No Currently Unemployed: No Education: High School Diploma/GED Difficulty w/ Childcare or Family Care: No Spiritual care concerns: No Meds Home Medications and Allergies Home Medications Medication Instructions Recorded Confirmed Type No Home Medications 03/10/24 03/10/24 History Allergies Allergy/AdvReac Type Severity Reaction Status Date / Time No Known Allergies Allergy Verified 03/10/24 00:45 Vital Signs Vital Signs - 24 hr 03/09/24 22:45 03/09/24 23:44 Temperature 99.5 F 99.8 F H Pulse Rate 127 H 115 H Respiratory Rate 20 15 Blood Pressure 123/78 144/90 H Pulse Oximetry 98 100 Exam Narrative: sitting in a stretcher Const: General: comfortable, no acute distress, well developed, alert, awake, ill appearing acutely and thin Nutritional Appearance: thin Orientation/consciousness: patient oriented x3 HENMT: Head: normal to inspection, normocephalic and atraumatic Ears: hearing grossly normal bilaterally Face/Nose/Sinus: normal facial exam Face and sinus: normal facial exam Eyes: General: appearance normal, both eyes and all related structures Pupils: Equal, round and reactive pupils present EOM: EOMs intact bilaterally Neck: Neck: full ROM, no lymphadenopathy and no JVD Thyroid: thyroid normal Lymphatic: no lymphadenopathy noted Resp: Effort & Inspection: normal respiratory effort and able to speak in complete sentences Auscultation: clear to auscultation bilaterally Cardio: Jugular venous distension: no JVD Rate: regular rate Rhythm: regular rhythm Heart sounds: S1 normal heart sound present and S2 normal heart sound present GI: GI Palp: Yes Soft to palpation and Yes No hepatosplenomegaly present : General: Yes deferred Skin: Other: left lower extremity redness Neuro: General: patient oriented x3 and CN's II-XI intact bilaterally Cranial nerves: Yes CN's II-XII intact bilaterally and Yes Equal, round and reactive pupils present Cognition (Neuro): normal cognition Speech: normal speech Gait exam (Neuro): Unable to assess gait Motor exam (neuro): 5/5 motor strength present throughout Extrem: General: normal to inspection, full ROM, no joint enlargement and no pedal edema Left lower extremity: lower leg Details: erythema, tenderness and warmth Other: bilateral 2nd toe amputati
[2024-03-10 00:40] LABS: Alanine Aminotransferase 58 U/L (6-50); Albumin Level 4.1 g/dL (3.5-5.1); Alkaline Phosphatase 72 U/L (38-126); Anion Gap 7 mmol/L (4-12); Aspartate Amino Transferase 39 U/L (17-59); Bilirubin,Total 0.9 mg/dL (0.2-1.3); Blood Urea Nitrogen 9 mg/dL (9-20); Calcium 9.2 mg/dL (8.4-10.2); Carbon Dioxide 29 mmol/L (22-30); Chloride 94 mmol/L (98-107); Estimated CRCL calculation 105 ml/min; Estimated Glomerular Filt Rate > 60; Glucose 129 mg/dL (65-110); Potassium 3.8 mmol/L (3.4-5.0); Sodium 130 mmol/L (137-145)
[2024-03-10 00:44] LABS: CRP 8.5 mg/dL (<1.0)
[2024-03-10] MEDS: VANCOMYCIN 1,250 MG/NS 250 ML 1,250 MG/250 ML BAG 166.67 MG IVPB ×2 (01:16→14:19)
--- NOTE | 2024-03-10 01:49 | ADMGEN ---
This patient, Bryant Hopson, was admitted to [facility] Surg Room 302-01. Patient/family oriented to hospital policies and general routines including ID bracelet, bed and alarms, visiting hours, pain management, procedures, bathroom and other care routines, personal items, smoking policy, room service/diet, and visiting hours. Information on how to activate the Rapid Response Team has been discussed. Patient/Family are encouraged to report perceived risks to care and to ask questions if they do not understand what they are told or what they should do.
[2024-03-10 01:51] VITALS: PULSE 115; RESP 15; O2SAT 100
[2024-03-10] MEDS: VANCOMYCIN 1,000 MG/NS 250 ML 1,000 MG/250 ML BAG 166 MG IVPB (03:07)
[2024-03-10 05:05] VITALS: BP 114/61; PULSE 100; RESP 16; TEMP 37.3; O2SAT 100
[2024-03-10 07:12] VITALS: O2SAT 99
--- NOTE | 2024-03-10 09:23 | PM.IMPN ---
Progress Note: A&P Assessment and Plan (1) Cellulitis: Code(s): L03.90 - Cellulitis, unspecified Status: Acute Assessment and Plan: admit to regular medical floor started on vancomycin and cefazolin await cultures (2) Methamphetamine use: Code(s): F15.10 - Other stimulant abuse, uncomplicated Status: Acute Assessment and Plan: follow-up in outpatient setting -rehab resources (3) Former smoker: Code(s): Z87.891 - Personal history of nicotine dependence Status: Acute (4) Hx of intravenous drug use in remission: Code(s): Z87.898 - Personal history of other specified conditions Status: Acute Assessment and Plan: denies current use of IV drug Time Spent With Patient Time with patient: Greater than 35 minutes Subjective Date/time seen: 03/10/24 09:23 Interval history: Left lower extremity swelling Retrieved from H/P: This is a 44-year-old male with past medical history significant for polysubstance abuse patient currently uses ice denies the use of IV drugs quit smoking since 19/12, Bilateral 2nd toe amputations. Patient presents to the emergency room due to left lower extremity redness swelling of 3 days with generalized malaise, chills. preliminary workup was significant for leukocyte count of 15,000. patient has been started on cefazolin and vancomycin admitted to regular medical floor. 03/10- pt is seen and examined. He is on IV antibiotics- cefazolin and vanc. reports no acute issues, LLE red and swolled. Review of Systems Review of Systems: Left lower extremity swelling, redness, tenderness ,generalized malaise ,chills. Exam Narrative: sitting in a stretcher Const: General: comfortable, no acute distress, well developed, alert, awake, ill appearing acutely and thin Nutritional Appearance: thin Orientation/consciousness: patient oriented x3 HENMT: Head: normal to inspection, normocephalic and atraumatic Ears: hearing grossly normal bilaterally Face/Nose/Sinus: normal facial exam Eyes: General: appearance normal, both eyes and all related structures Pupils: Equal, round and reactive pupils present Neck: Neck: full ROM, no lymphadenopathy and no JVD Resp: Effort & Inspection: normal respiratory effort and able to speak in complete sentences Auscultation: clear to auscultation bilaterally Cardio: Jugular venous distension: no JVD Rate: regular rate Rhythm: regular rhythm Heart sounds: S1 normal heart sound present and S2 normal heart sound present : General: Yes deferred Skin: Other: left lower extremity redness, swelling Neuro: General: patient oriented x3, CN's II-XI intact bilaterally and Unable to assess gait Cranial nerves: Yes CN's II-XII intact bilaterally and Yes Equal, round and reactive pupils present Cognition (Neuro): normal cognition Speech: normal speech Gait exam (Neuro): Unable to assess gait Motor exam (neuro): 5/5 motor strength present throughout Extrem: General: normal to inspection, full ROM, no joint enlargement and no pedal edema Left lower extremity: lower leg Details: erythema, tenderness and warmth Other: bilateral 2nd toe amputation Objective Data Vital Signs Vital Signs: Vital Signs - 24 hr 03/09/24 22:45 03/09/24 23:44 03/10/24 01:51 Temperature 99.5 F 99.8 F H Pulse Rate 127 H 115 H 115 H Respiratory Rate 20 15 15 Blood Pressure 123/78 144/90 H Pulse Oximetry 98 100 100 Oxygen Delivery Room Air Fraction of Inspired Oxygen 03/10/24 05:05 03/10/24 07:12 Temperature 99.2 F Pulse Rate 100 Respiratory Rate 16 Blood Pressure 114/61 Pulse Oximetry 100 99 Oxygen Delivery Room Air Fraction of Inspired Oxygen 21 Intake/Output Intake/Output: Intake & Output 03/07/24 03/08/24 03/09/24 03/10/24 23:59 23:59 23:59 23:59 Intake Total 2786 Balance 2786 Meds/Results Medications: Active Medications Generic Name Dose Route
[2024-03-10 10:45] LABS: Barbiturate Screen Urine Negative (Negative); Benzodiazepines Screen Urine Negative (Negative)
[2024-03-10 10:46] LABS: Cannabinoid Screen Urine Negative (Negative); Cocaine Screen Urine Negative (Negative); Methadone Screen Urine Negative (Negative); Opiate Screen Urine Negative (Negative); Phencyclidine Screen Urine Negative (Negative)
[2024-03-10 11:35] LABS: Amphetamine Screen Urine Positive (Negative)
[2024-03-10 14:00] VITALS: BP 120/69; PULSE 98; RESP 18; TEMP 37.4; O2SAT 99
[2024-03-10 20:16] VITALS: BP 130/77; PULSE 92; RESP 18; TEMP 37.1; O2SAT 100
[2024-03-11] MEDS: VANCOMYCIN 1,250 MG/NS 250 ML 1,250 MG/250 ML BAG 166.67 MG IVPB (00:21)
[2024-03-11 05:26] VITALS: BP 119/75; PULSE 81; RESP 16; TEMP 36.4; O2SAT 98
[2024-03-11] MEDS: ceFAZolin 1 GM/NS 50 ML 1 GM/50 ML BAG IVPB ×3 (07:53→23:49)
[2024-03-11 08:55] LABS: Estimated CRCL calculation 132 ml/min; Estimated Glomerular Filt Rate > 60
--- NOTE | 2024-03-11 09:05 | PM.IMPN ---
Progress Note: A&P Assessment and Plan (1) Cellulitis: Code(s): L03.90 - Cellulitis, unspecified Status: Acute Assessment and Plan: admit to regular medical floor started on IV vancomycin and cefazolin await cultures- prelim - no growth - possible downgrade to PO antibiotics tomorrow and anticipate discharge in the next few days if stable -wbc 9.1 today (15.4) (2) Methamphetamine use: Code(s): F15.10 - Other stimulant abuse, uncomplicated Status: Acute Assessment and Plan: follow-up in outpatient setting (3) Former smoker: Code(s): Z87.891 - Personal history of nicotine dependence Status: Acute Assessment and Plan: unchanged (4) Hx of intravenous drug use in remission: Code(s): Z87.898 - Personal history of other specified conditions Status: Acute Assessment and Plan: denies current use of IV drug Time Spent With Patient Time with patient: Greater than 35 minutes Subjective Date/time seen: 03/11/24 09:05 Interval history: Left lower extremity swelling Retrieved from H/P: This is a 44-year-old male with past medical history significant for polysubstance abuse patient currently uses ice denies the use of IV drugs quit smoking since 19/12, Bilateral 2nd toe amputations. Patient presents to the emergency room due to left lower extremity redness swelling of 3 days with generalized malaise, chills. preliminary workup was significant for leukocyte count of 15,000. patient has been started on cefazolin and vancomycin admitted to regular medical floor. 03/10- pt is seen and examined. He is on IV antibiotics- cefazolin and vanc. reports no acute issues, LLE red and swollen. 03/11 no acute events overnight. Remains afebrile. IV antibiotics. States leg feels less tight . Still somewhat swollen and still erythema. Review of Systems Review of Systems: Left lower extremity swelling, redness, tenderness ,generalized malaise ,chills. Exam Narrative: sitting in a stretcher Const: General: comfortable, no acute distress, well developed, alert, awake, ill appearing acutely and thin Nutritional Appearance: thin Orientation/consciousness: patient oriented x3 HENMT: Head: normal to inspection, normocephalic and atraumatic Eyes: General: appearance normal, both eyes and all related structures Pupils: Equal, round and reactive pupils present Neck: Neck: full ROM, no lymphadenopathy and no JVD Resp: Effort & Inspection: normal respiratory effort and able to speak in complete sentences Auscultation: clear to auscultation bilaterally Cardio: Jugular venous distension: no JVD Rate: regular rate Rhythm: regular rhythm Heart sounds: S1 normal heart sound present and S2 normal heart sound present : General: Yes deferred Skin: Other: left lower extremity redness, swelling Neuro: General: patient oriented x3, CN's II-XI intact bilaterally and Unable to assess gait Cranial nerves: Yes CN's II-XII intact bilaterally and Yes Equal, round and reactive pupils present Cognition (Neuro): normal cognition Speech: normal speech Motor exam (neuro): 5/5 motor strength present throughout Extrem: General: normal to inspection, full ROM and no pedal edema Left lower extremity: lower leg Details: erythema, tenderness and warmth Other: bilateral 2nd toe amputation Objective Data Vital Signs Vital Signs: Vital Signs - 24 hr 03/10/24 14:00 03/10/24 20:16 03/11/24 05:26 Temperature 99.3 F 98.7 F 97.5 F L Pulse Rate 98 92 81 Respiratory Rate 18 18 16 Blood Pressure 120/69 130/77 119/75 Pulse Oximetry 99 100 98 Intake/Output Intake/Output: Intake & Output 03/08/24 03/09/24 03/10/24 03/11/24 23:59 23:59 23:59 23:59 Intake Total 4096 400 Output Total 700 800 Balance 3396 -400 Meds/Results Medications: Active Medications Generic Name Dose Route Start Last Admin Trade Name Freq PRN Reason Stop Dose Adm
[2024-03-11 09:30] LABS: Hematocrit 41.8 % (42.0-52.0); Hemoglobin 13.9 g/dL (14.0-18.0); Mean Corpuscular HGB Conc 33.3 g/dl (32-36); Mean Corpuscular Hemoglobin 30.2 pg (26-34); Mean Corpuscular Volume 90.9 fl (80-100); Mean Platelet Volume 9.8 fl (7.4-10.4); Platelet Count Result 254 k/mm3 (150-375); Red Cell Distribution Width 12.1 % (11.5-14.5); White Blood Count 9.1 K/mm3 (4.5-10.0)
[2024-03-11 09:50] LABS: Anion Gap 7 mmol/L (4-12); Blood Urea Nitrogen 8 mg/dL (9-20); Carbon Dioxide 28 mmol/L (22-30); Chloride 98 mmol/L (98-107); Estimated CRCL calculation 132 ml/min; Estimated Glomerular Filt Rate > 60; Glucose 92 mg/dL (65-110); Potassium 4.2 mmol/L (3.4-5.0); Sodium 133 mmol/L (137-145)
[2024-03-11 12:30] LABS: Vancomycin Trough 8.1 ug/mL (10.0-20.0)
[2024-03-11 14:00] VITALS: BP 119/71; PULSE 85; RESP 20; TEMP 36.4; O2SAT 100
[2024-03-11] MEDS: VANCOMYCIN 2,000 MG/NS 500 ML 2,000 MG/500 ML BAG 250 MG IVPB (14:13)
[2024-03-11 19:40] VITALS: BP 110/69; PULSE 85; RESP 20; TEMP 37.5; O2SAT 100
[2024-03-12 00:29] VITALS: TEMP 37.4
[2024-03-12] MEDS: ACETAMINOPHEN 500 MG TABLET 1000 MG PO (00:29)
[2024-03-12 01:20] VITALS: TEMP 36.9
[2024-03-12] MEDS: VANCOMYCIN 2,000 MG/NS 500 ML 2,000 MG/500 ML BAG 250 MG IVPB (01:44)
[2024-03-12 05:25] VITALS: BP 127/87; PULSE 92; RESP 20; TEMP 36.4; O2SAT 100
[2024-03-12 06:57] LABS: Estimated CRCL calculation 117 ml/min; Estimated Glomerular Filt Rate > 60
[2024-03-12] MEDS: ceFAZolin 1 GM/NS 50 ML 1 GM/50 ML BAG IVPB (09:08)
[2024-03-12] MEDS: ENOXAPARIN 40 MG/0.4 ML SYRINGE SUB-Q (09:11)
--- NOTE | 2024-03-12 13:17 | PM.IMPN ---
Progress Note: A&P Assessment and Plan (1) Cellulitis: Code(s): L03.90 - Cellulitis, unspecified Status: Acute Assessment and Plan: admit to regular medical floor started on IV vancomycin and cefazolin await cultures- prelim - no growth - possible downgrade to PO antibiotics tomorrow and anticipate discharge in the next few days if stable -wbc 9.1 today (15.4) - de escalating therapy today- anticipate discharge in the next few days (2) Methamphetamine use: Code(s): F15.10 - Other stimulant abuse, uncomplicated Status: Acute Assessment and Plan: follow-up in outpatient setting (3) Former smoker: Code(s): Z87.891 - Personal history of nicotine dependence Status: Acute Assessment and Plan: unchanged (4) Hx of intravenous drug use in remission: Code(s): Z87.898 - Personal history of other specified conditions Status: Acute Assessment and Plan: denies current use of IV drug Time Spent With Patient Time with patient: Greater than 35 minutes Subjective Date/time seen: 03/12/24 0900 Interval history: Left lower extremity swelling Retrieved from H/P: This is a 44-year-old male with past medical history significant for polysubstance abuse patient currently uses ice denies the use of IV drugs quit smoking since 19/12, Bilateral 2nd toe amputations. Patient presents to the emergency room due to left lower extremity redness swelling of 3 days with generalized malaise, chills. preliminary workup was significant for leukocyte count of 15,000. patient has been started on cefazolin and vancomycin admitted to regular medical floor. 03/10- pt is seen and examined. He is on IV antibiotics- cefazolin and vanc. reports no acute issues, LLE red and swollen. 03/11 no acute events overnight. Remains afebrile. IV antibiotics. States leg feels less tight . Still somewhat swollen and still erythema. 03/12-resting with eyes closed. Erythema is slightly better. Will de escalate to PO antibiotics- [facility] Review of Systems Review of Systems: Left lower extremity swelling, redness- improving. tenderness ,generalized malaise ,chills. Exam Const: General: comfortable, no acute distress, well developed, ill appearing acutely and thin Nutritional Appearance: thin Orientation/consciousness: patient oriented x3 HENMT: Head: normal to inspection, normocephalic and atraumatic Ears: hearing grossly normal bilaterally Face/Nose/Sinus: normal facial exam Face and sinus: normal facial exam Eyes: General: appearance normal, both eyes and all related structures Pupils: Equal, round and reactive pupils present EOM: EOMs intact bilaterally Neck: Neck: full ROM and no lymphadenopathy Resp: Effort & Inspection: normal respiratory effort and able to speak in complete sentences Auscultation: clear to auscultation bilaterally Cardio: Rate: regular rate Rhythm: regular rhythm : General: Yes deferred Skin: Other: left lower extremity redness, swelling Neuro: General: patient oriented x3, CN's II-XI intact bilaterally and Unable to assess gait Cranial nerves: Yes CN's II-XII intact bilaterally and Yes Equal, round and reactive pupils present Cognition (Neuro): normal cognition Speech: normal speech Motor exam (neuro): 5/5 motor strength present throughout Extrem: General: normal to inspection, full ROM and no pedal edema Left lower extremity: lower leg Details: erythema, tenderness and warmth Other: bilateral 2nd toe amputation Objective Data Vital Signs Vital Signs: Vital Signs - 24 hr 03/11/24 14:00 03/11/24 19:40 03/12/24 00:29 Temperature 97.5 F L 99.5 F 99.3 F Pulse Rate 85 85 Respiratory Rate 20 20 Blood Pressure 119/71 110/69 Pulse Oximetry 100 100 Oxygen Delivery 03/12/24 01:20 03/12/24 05:25 03/12/24 09:00 Temperature 98.4 F 97.6 F Pulse Rate 92 Respiratory Rate 20 Blood P
[2024-03-12] MEDS: SULFAMETHOXAZOLE/TRIMETHOPRIM 800/160 MG DS TABLET 1 TAB PO ×2 (13:45→20:05)
[2024-03-12 14:00] VITALS: BP 130/80; PULSE 84; RESP 18; TEMP 36.5; O2SAT 100
[2024-03-12 20:00] VITALS: BP 118/80; PULSE 84; RESP 18; TEMP 36.9; O2SAT 99
[2024-03-13 05:25] VITALS: BP 129/84; PULSE 86; RESP 18; TEMP 37.3; O2SAT 99
[2024-03-13] MEDS: ENOXAPARIN 40 MG/0.4 ML SYRINGE SUB-Q (09:23)
[2024-03-13] MEDS: SULFAMETHOXAZOLE/TRIMETHOPRIM 800/160 MG DS TABLET 1 TAB PO (09:23)
[2024-03-13 10:12] LABS: Hematocrit 42.2 % (42.0-52.0); Hemoglobin 13.7 g/dL (14.0-18.0); Mean Corpuscular HGB Conc 32.5 g/dl (32-36); Mean Corpuscular Hemoglobin 30.1 pg (26-34); Mean Corpuscular Volume 92.7 fl (80-100); Mean Platelet Volume 8.9 fl (7.4-10.4); Platelet Count Result 298 k/mm3 (150-375); Red Blood Count 4.55 M/mm3 (4.6-6.20); Red Cell Distribution Width 11.9 % (11.5-14.5)
[2024-03-13 10:25] LABS: Anion Gap 9 mmol/L (4-12); Blood Urea Nitrogen 12 mg/dL (9-20); Calcium 9.1 mg/dL (8.4-10.2); Carbon Dioxide 30 mmol/L (22-30); Chloride 98 mmol/L (98-107); Estimated CRCL calculation 117 ml/min; Estimated Glomerular Filt Rate > 60; Glucose 94 mg/dL (65-110); Potassium 4.2 mmol/L (3.4-5.0); Sodium 137 mmol/L (137-145)
--- NOTE | 2024-03-13 12:43 | PM.DS ---
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 - Other stimulant abuse, uncomplicated Status: Acute Assessment and Plan: follow-up in outpatient setting (3) Former smoker: Code(s): Z87.891 - Personal history of nicotine dependence Status: Acute Assessment and Plan: unchanged (4) Hx of intravenous drug use in remission: Code(s): Z87.898 - Personal history of other specified conditions Status: Acute Assessment and Plan: denies current use of IV drug DS: Summary Hospital Course Hospital Course: This is a 44-year-old male with past medical history significant for polysubstance abuse patient currently uses ice denies the use of IV drugs quit smoking since 19/12, Bilateral 2nd toe amputations. Patient presents to the emergency room due to left lower extremity redness swelling of 3 days with generalized malaise, chills. preliminary workup was significant for leukocyte count of 15,000. patient has been started on cefazolin and vancomycin admitted to regular medical floor. await cultures- prelim - no growth -wbc 15.4 on admission ->9.1->7 was switched to PO antibiotics- with 7 doses left - last dose 03/16 at 9 pm for septra ds 1 tab q12h Status at Discharge Functional status at discharge: independent ambulation Overall status at discharge: patient is progressing back to baseline Time Spent with Patient Time attestation: Total time spent providing and/or coordinating discharge services: Time spent: Greater than 30 minutes Exam Narrative: sitting in a stretcher Const: General: comfortable, no acute distress, well developed, alert, awake, ill appearing acutely and thin Nutritional Appearance: thin Orientation/consciousness: patient oriented x3 HENMT: Head: normal to inspection, normocephalic and atraumatic Ears: hearing grossly normal bilaterally Face/Nose/Sinus: normal facial exam Face and sinus: normal facial exam Eyes: General: appearance normal, both eyes and all related structures Pupils: Equal, round and reactive pupils present EOM: EOMs intact bilaterally Neck: Neck: full ROM, no lymphadenopathy and no JVD Thyroid: thyroid normal Lymphatic: no lymphadenopathy noted Resp: Effort & Inspection: normal respiratory effort and able to speak in complete sentences Auscultation: clear to auscultation bilaterally Cardio: Jugular venous distension: no JVD Rate: regular rate Rhythm: regular rhythm Heart sounds: S1 normal heart sound present and S2 normal heart sound present : General: Yes deferred Skin: Other: left lower extremity redness, swelling- improved Neuro: General: patient oriented x3, CN's II-XI intact bilaterally and Unable to assess gait Cranial nerves: Yes CN's II-XII intact bilaterally and Yes Equal, round and reactive pupils present Cognition (Neuro): normal cognition Speech: normal speech Gait exam (Neuro): Unable to assess gait Motor exam (neuro): 5/5 motor strength present throughout Extrem: General: normal to inspection, full ROM, no joint enlargement and no pedal edema Left lower extremity: lower leg Details: erythema, tenderness and warmth Other: bilateral 2nd toe amputation DS: Data Data Completed and Pending Completed studies during hospitalization: venous doppler Labs on day of discharge: Labs from last 24 hours 03/13/24 10:05 WBC 7.0 RBC 4.55 L Hgb 13.7
== END 2024-03-13 14:50 | disposition home or self-care (01) ==
LOC: ANHED 03-10 00:38 → ANH3MEDSUR 03-10 01:10
PROVIDERS: Nurse Practitioner; Admitting Provider Internal Medicine; Emergency Provider Emergency Medicine; Visit Provider Internal Medicine
DX: L03.116 Cellulitis of left lower limb (principal); F15.10 Other stimulant abuse, uncomplicated; Z87.898 Personal history of other specified conditions; Z87.891 Personal history of nicotine dependence; Z89.422 Acquired absence of other left toe(s); Z89.421 Acquired absence of other right toe(s)
CPT/HCPCS: 36415; 80048; 80053; 80202; 80307; 82565; 83605; 85025; 85027; 85610; 85730; 86140; 87040; 93971; 96365; 96366; 96367; 96372; 96376; 99285; A9270; G0378; G0379; J0690; J1650; J3370; J7030

== ENCOUNTER 2024-08-09 20:03 | Inpatient (IN) | payer OTHER, SELFPAY ==
--- NOTE | ~2024-08-09 | US_ITS ---
RIGHT LOWER EXTREMITY VENOUS ULTRASOUND Ordering provider: Katiuska Moreland APRN History: . swelling . Comparison: None. FINDINGS: --COMMON FEMORAL: Patent and free of thrombus. Normal compressibility, phasic flow and augmentation. --PROXIMAL SUPERFICIAL FEMORAL: Patent and free of thrombus. Normal compressibility, phasic flow and augmentation. --DISTAL SUPERFICIAL FEMORAL: Patent and free of thrombus. Normal compressibility, phasic flow and au gmentation. --POPLITEAL: Patent and free of thrombus. Normal compressibility, phasic flow and augmentation. --POSTERIOR TIBIAL: Patent and free of thrombus. Normal compressibility, phasic flow and augmentation . Multiple lymph nodes are seen in the right groin with the largest measuring 5.7 x 1.8 x 3.6 cm. Clini ashlyn correlation advised. IMPRESSION: Negative right lower extremity venous US. No deep vein thrombosis. Lymphadenopathy in the right groin. Reviewed, dictated and finalized at location A.
--- NOTE | ~2024-08-09 | XR_ITS ---
EXAM: XR tibia fibula RT 2V DATE: 08/09/2024 21:51 HISTORY: cellulitis and pain . COMPARISON: None available. FINDINGS: Normal mineralization. No fracture or dislocation. No lytic or blastic lesion. Joint space s are maintained. No erosion or periosteal change. Diffuse soft tissue swelling and edema of the lowe r leg. IMPRESSION: No acute osseous finding in the right tibia/fibula. Reviewed, dictated and finalized at location K.
[2024-08-09 20:06] VITALS: BP 144/91; PULSE 114; RESP 15; TEMP 37.7; O2SAT 98
--- OUTSIDE RECORDS SUMMARY | 2024-08-09 20:07 | XMS_ITS | Patient Health Record ---
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, Adult SARAH Unavailabl e [phone] Reason For Referral No Information Medications Medication SIG (Take, Route, Fr equency, Duration) Notes Start Date End Date Status Multivitamin Adult - Orally Active Thiamine HCl 100 MG 1 tablet Orally Once a day Active Folic Acid 800 MCG 1 tablet Orally Once a day Active Zofran 4 MG 2 tablets Orally Once a day Active hydrOXYzine HCl 50 MG 2 tablet as needed Orally every 4 hrs for 4 days Active tiZANidine HCl 4 MG 2 capsule as needed Orally every 6 hours for 4 days Active Gabapentin 600 MG 1 tablet Orally ever y night for 4 days Active Gabapentin 300 MG 1 capsule Orally Thr ee times a day for 4 days Active Problems Problem Type SNOMED Code ICD Code Onset Dates Problem Status W/U Status Risk Notes Problem 80077208 Tobacco dependence (F17.200) Active confirmed Problem 22877221 Substance abuse (F19.10) Active confirmed Plan Of Treatment No Information Insurance Providers Payer Name Payer Address Payer Phone Subscriber Number Group Number Insured Name Patient Relationship to Insured Coverage Start Date Coverage End Date [facility] [address] [place] [phone] [id number] Bryant Hopson Self - patient is the insured 3 Medical (General) History Surgical History Surgery Date(Month/Year) right inguinal henia repair as a teenage r
--- NOTE | 2024-08-09 21:15 | ED_ITS ---
HPI - Extremity Problem General Chief complaint: Extremity Problem,Nontraumatic Stated complaint: Cellulitis right lower leg Time Seen by Provider: 08/09/24 20:42 History of Present Illness HPI Narrative: 44-year-old male with a past medical history including remote intravenous drug use, previous methamphetamine abuse and previous osteomyelitis and infections of his left leg requiring IV antibiotics and amputations of several toes. Patient presents to the emergency department today with concerns of cellulitis was right leg. Patient states it feels very similar to last time he had cellulitis in his left leg several years ago. Endorses rapid progression over last few days at home and has difficulty ambulating secondary to the pain. No subjective fever chills. Denies any new or recent intravenous drug use. No alcohol use. Has not taking anything for the pain. Denies any trauma, falls. Notices that he has been developing some sores in his right leg that are blistered open and draining purulence. Related Data Allergies Allergy/AdvReac Type Severity Reaction Status Date / Time No Known Allergies Allergy Verified 08/09/24 20:05 Review of Systems 2 Review of Systems: As reviewed above in HPI [facility] Past Medical History Medical History IV drug user Ulcer of toe of right foot Ulcer of toe of left foot Family History Family History Grandparent Testicular cancer Social History Social History Smoking packs per day: 0.5 Smoking cigarettes per day: 10.0 Smoking status: Former smoker Tobacco type: cigarettes Smoking end date: 04/09/19 Alcohol intake: never Substance use: former Substance use type: crack/cocaine Last use: 04/06/2022 Do You Feel Safe in your Home?: Yes Lack of Transportation: No Lack of Food: Never True Current Housing: I Have Housing Concerned About Future Housing: No Difficulty Paying Gas/Electric Bills: No Difficulty Paying for Meds: No Currently Unemployed: No Education: High School Diploma/GED Difficulty w/ Childcare or Family Care: No Spiritual care concerns: No Exam 2 Narrative: GENERAL: [Well-appearing, well-nourished, and in no acute distress.] HEAD: [Normocephalic, atraumatic.] EYES: [PERRLA and EOMI.] ENT: Nares clear, no rhinorrhea or epistaxis. Mucous membranes moist. NECK: Supple. CHEST: [Clear to auscultation. No respiratory distress.] HEART: [Regular rate and rhythm]. No murmur heard. [Normal peripheral pulses.] ABDOMEN: [Soft, nondistended], [nontender], [No rigidity or guarding] EXTREMITIES: Cellulitis and redness, warmth with tenderness to palpation noted over the right anterior and lateral portion of the tib-fib. Open wounds with purulent drainage without any crepitus, no deformity. Contralateral leg on the left side has previous scars from ulcerations. No signs of proximal streaking. Plantar dorsiflexion 5/5, 2+ dorsalis pedis pulses, warm extremities. SKIN: Warm, dry, no rash. NEURO: [No focal deficits]. Alert and oriented [x3.] PSYCH: [Normal mood and affect.] Course Vital Signs Vital signs: Vital Signs Temperature 37.7 C H 08/09/24 20:06 Pulse Rate 114 H 08/09/24 20:06 Respiratory Rate 15 08/09/24 20:06 Blood Pressure 144/91 H 08/09/24 20:06 Pulse Oximetry 98 08/09/24 20:06 Oxygen Delivery Room Air 08/09/24 20:06 Temperature 37.7 C H 08/09/24 20:06 Pulse Rate 114 H 08/09/24 20:06 Respiratory Rate 15 08/09/24 20:06 Blood Pressure 144/91 H 08/09/24 20:06 Pulse Oximetry 98 08/09/24 20:06 Oxygen Delivery Room Air 08/09/24 20:06 MDM - Extremity (Nontraumatic) MDM Narrative Medical decision making narrative: 44-year-old male presenting for right lower extremity cellulitis. He has a history of remote intravenous drug use many years ago resulting in osteomyelitis and cellulitis of his left leg requiring amputation of several toes. Denies any recent injection drug use or any recent trauma. Has cellulitis of his right lower extremity with purulent open sores. No bulla formation or evidence of necrosis. Suspicion presently is for cellulitis versus MRSA infection given his history of MRSA in the past in his left leg. Low suspicion necrotizing infection based on clinical exam. He is borderline febrile with the tachycardic pulses suspicion for bloodstream infection or sepsis is also raised. He was given fluid resuscitation with 1 L bolus as he is not hypotensive her hemodynamically unstable, does not need the full 30 cc/kg bolus. Blood cultures, lactic acid, CBC, CMP, CRP and ESR obtained. He was started on vancomycin and clindamycin and x-rays of his right leg tib-fib region were obtained. Patient was provided Toradol for analgesia and frequent re-evaluated. Patient's tib-fib x-ray was independent reviewed and I appreciated no osseous or periosteal reaction or acute injury. No air. Workup reveals a leukocytosis of 14.1, hemoglobin 12.7, normal platelet count. Negative lactic acid. Patient was re-evaluated had improvement after his Toradol. At this time he requires admission to the hospital for continued IV antibiotics of his cellulitis and history of MRSA infection. Spoke to the hospitalist service being covered by the midlevel provider Katiuska at this time and after we went over patient's clinical exam, imaging and labs he was accepted to the hospital under a med surge bed at this time. Patient comfortable with this plan. Lab Data 08/09/24 21:09 08/09/24 21:40 Labs: Lab Results 08/09/24 08/09/24 Range/Units 21:09 21:40 WBC 14.1 H (4.5-10.0) K/mm3 RBC 4.27 L (4.6-6.20) M/mm3 Hgb 12.7 L (14.0-18.0) g/dL Hct 37.5 L (42.0-52.0) % MCV 87.8 (80-100) fl MCH 29.7 (26-34) pg MCHC 33.9 (32-36) g/dl RDW 12.0 (11.5-14.5) % Plt Count 323 (150-375) k/mm3 MPV 9.8 (7.4-10.4) fl Immature Gran % (Auto) 0.6 H (0-0.5) % Neut % (Auto) 80.4 H (45.5-73.1) % Lymph % (Auto) 9.0 L (18.3-44.2) % [place] % (Auto) 9.3 H (2.6-8.5) % Eos % (Auto) 0.4 (0-4.4) % Baso % (Auto) 0.3 (0.2-1.2) % Lymph # (Auto) 1.27 (0.9-3.2) K/mm3 [place] # (Auto) 1.3 H (0.1-0.6) K/mm3 Eos # (Auto) 0.1 (0-0.3) K/mm3 Baso # (Auto) 0.0 (0.0-0.1) K/mm3 Abs Immat Gran (auto) 0.08 H (0.00-0.031) K/mm3 Absolute Neuts (auto) 11.3 H (1.3-6.7) K/mm3 Absolute Nucleated RBC 0.000 (0.0-0.012) K/mm3 Nucleated RBC % 0.0 (0.0-0.2) % ESR 22 H (0-20) mm/hr Sodium 133 L (137-145) mmol/L Potassium 3.4 (3.4-5.0) mmol/L Chloride 95 L (98-107) mmol/L Carbon Dioxide 29 (22-30) mmol/L Anion Gap 9 (4-12) mmol/L BUN 17 (9-20) mg/dL Creatinine 1.03 (0.7-1.3) mg/dL Estim Creat Clear Calc 92 ml/min Estimated GFR > 60 (59 - ) Glucose 114 H (65-110) mg/dL Lactic Acid 1.5 (0.7-2.0) mmol/L Calcium 8.6 (8.4-10.2) mg/dL Total Bilirubin 0.6 (0.2-1.3) mg/dL AST 44 (17-59) U/L ALT 53 H (6-50) U/L Alkaline Phosphatase 90 (38-126) U/L C-Reactive Protein Pending Total Protein 7.0 (6.3-8.2) g/dL Albumin 3.6 (3.5-5.1) g/dL Discharge Plan Discharge Clinical Impression: Cellulitis of right lower extremity, History of MRSA infection, History of intravenous drug use Patient Disposition: Still a Patient Condition: Stable Patient Language: Gibraltarian Prescriptions: No Action sulfamethoxazole-trimethoprim 800-160 mg Tablet 1 tab PO Q12HR Qty: 7 0RF Follow-up/Referrals: UNKNOWN,DOCTOR [Primary Care Provider] - Time of Disposition: 22:07
[2024-08-09 21:16] LABS: Basophils Percent Auto 0.3 % (0.2-1.2); Eosinophils Absolute Auto 0.1 K/mm3 (0-0.3); Eosinophils Percent Auto 0.4 % (0-4.4); Hematocrit 37.5 % (42.0-52.0); Hemoglobin 12.7 g/dL (14.0-18.0); Immature Granulocyte Absolute 0.08 K/mm3 (0.00-0.031); Immature Granulocyte Percent A 0.6 % (0-0.5); Lymphocytes Absolute Auto 1.27 K/mm3 (0.9-3.2); Mean Corpuscular HGB Conc 33.9 g/dl (32-36); Mean Corpuscular Hemoglobin 29.7 pg (26-34); Mean Corpuscular Volume 87.8 fl (80-100); Mean Platelet Volume 9.8 fl (7.4-10.4); Monocytes Absolute Auto 1.3 K/mm3 (0.1-0.6); Monocytes Percent Auto 9.3 % (2.6-8.5); Neutrophils Absolute Auto 11.3 K/mm3 (1.3-6.7); Neutrophils Percent Auto 80.4 % (45.5-73.1); Platelet Count Result 323 k/mm3 (150-375); Red Blood Count 4.27 M/mm3 (4.6-6.20); White Blood Count 14.1 K/mm3 (4.5-10.0)
[2024-08-09 21:34] LABS: Lactic Acid Reflex 1.5 mmol/L (0.7-2.0)
[2024-08-09] MEDS: KETOROLAC 15 MG/ML VIAL (*BKC) IV PUSH (21:36)
[2024-08-09] MEDS: ACETAMINOPHEN 500 MG TABLET 1000 MG PO (21:36)
[2024-08-09] MEDS: LACTATED RINGERS 1,000 ML 999 ML IV CONT (21:36)
[2024-08-09] MEDS: CLINDAMYCIN 900 MG/D5W 50 ML 900 MG/50 ML PIGGYBACK 50 MG IVPB (21:42)
[2024-08-09 21:46] LABS: Erythrocyte Sedimentation Rate 22 mm/hr (0-20)
[2024-08-09 22:09] LABS: Alanine Aminotransferase 53 U/L (6-50); Albumin Level 3.6 g/dL (3.5-5.1); Alkaline Phosphatase 90 U/L (38-126); Anion Gap 9 mmol/L (4-12); Aspartate Amino Transferase 44 U/L (17-59); Bilirubin,Total 0.6 mg/dL (0.2-1.3); Blood Urea Nitrogen 17 mg/dL (9-20); Calcium 8.6 mg/dL (8.4-10.2); Carbon Dioxide 29 mmol/L (22-30); Chloride 95 mmol/L (98-107); Estimated CRCL calculation 92 ml/min; Estimated Glomerular Filt Rate > 60; Glucose 114 mg/dL (65-110); Potassium 3.4 mmol/L (3.4-5.0); Sodium 133 mmol/L (137-145)
--- NOTE | 2024-08-09 22:16 | P.HP_ITS ---
H&P: HPI History of Present Illness Date/Time: 08/09/24 22:16 Chief Complaint: cellulitis Narrative: This is a 44-year-old male with a significant past medical history of IV drug use-crack/cocaine who has not used since 04/06/2022, former smoker who quit 04/09/2019 who presented to the hospital with concerns for cellulitis in his right lower extremity. 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 Patient reports the following history of presenting illness. Patient states that he started to develop redness, warmth, pain, swelling in his right lower extremity Friday of last week. He states since that time his symptoms progressively worsened. He states he was not able to come to the hospital over the weekend as he was caring for his daughter. He reports that he does not have a primary care doctor and he did not seek treatment for his right lower extremity cellulitis prior to coming to the hospital. He denies any fever, chills, nausea, vomiting, diarrhea, abdominal pain, chest pain, shortness a breath. He states that the pain got unbearable today especially with walking and presented to the ED for further evaluation. Workup in the hospital included a tibia/fibula x-ray which did not show any acute changes. Initial labs showed a white blood cell count of 14.1, hemoglobin 12.7, ESR 22, sodium 133, chloride 95, blood sugar 114, lactic acid was normal at 1.5, ALT was slightly elevated at 53, CRP 16.2. Blood and wound cultures obtained while in the ED. patient was given 1 L of LR, Tylenol, Toradol, clindamycin, vancomycin while in the ED. He is being admitted to the setting for continued IV antibiotics, wound care consult, ultrasound Doppler of right lower extremity. Review of Systems Review of Systems: All systems reviewed & are unremarkable except as noted in HPI and below PMFSH Past Medical History Medical History History of osteomyelitis Amputation of one or more toes IV drug user Ulcer of toe of right foot Ulcer of toe of left foot Family History Family History Grandparent Testicular cancer Social History Social History Smoking packs per day: 0.5 Smoking cigarettes per day: 10.0 Smoking status: Former smoker Tobacco type: cigarettes Smoking end date: 04/09/19 Alcohol intake: never Substance use: former Substance use type: crack/cocaine Last use: 04/06/2022 Do You Feel Safe in your Home?: Yes Lack of Transportation: No Lack of Food: Never True Current Housing: I Have Housing Concerned About Future Housing: No Difficulty Paying Gas/Electric Bills: No Difficulty Paying for Meds: No Currently Unemployed: No Education: High School Diploma/GED Difficulty w/ Childcare or Family Care: No Spiritual care concerns: No Meds Home Medications and Allergies Home Medications ?Medication ?Instructions ?Recorded ?Confirmed ?Type sulfamethoxazole 800 1 tab PO Q12HR #7 tabs 03/13/24 Rx mg-trimethoprim 160 mg tablet Allergies Allergy/AdvReac Type Severity Reaction Status Date / Time No Known Allergies Allergy Verified 08/09/24 20:05 Vital Signs Vital Signs - 24 hr 08/09/24 20:06 Temperature 100 F H Pulse Rate 114 H Respiratory Rate 15 Blood Pressure 144/91 H Pulse Oximetry 98 Oxygen Delivery Room Air Exam Narrative: General: In no acute distress, malnourished Head: atraumatic, no encephalopathy Eyes: PERRLA, sclera clear ENT: moist mucous membranes, nasal passages clear Neck: supple, no JVD, no adenopathy, trachea midline Cardiac: Normal S1 and S2. RRR, No murmur, gallops or friction rubs, peripheral pulses intact. Respiratory: Lungs clear to auscultation, no adventitious lung sounds currently on room air Gastrointestinal: soft, non-distended, non-tender, normoactive bowel sounds. : voiding without difficulty. Extremities: moves all extremities well, edema in right lower extremity good ROM, strength 5/5 Skin: Right lower extremity redness, warmth, swelling, pain. He does have 3 open wounds that are oozing. Left lower extremity 3 scabbed over areas. Neuro: Alert and oriented x4, cranial nerves intact, no neuro deficits. Psych: normal mood, normal affect, interactive H&P: Results Labs Labs: Short CBC 08/09/24 Range/Units 21:09 WBC 14.1 H (4.5-10.0) K/mm3 Hgb 12.7 L (14.0-18.0) g/dL Hct 37.5 L (42.0-52.0) % Plt Count 323 (150-375) k/mm3 BMP 08/09/24 21:40 Sodium 133 L Potassium 3.4 Chloride 95 L Carbon Dioxide 29 BUN 17 Creatinine 1.03 Glucose 114 H Calcium 8.6 Liver Function 08/09/24 Range/Units 21:40 Total Bilirubin 0.6 (0.2-1.3) mg/dL AST 44 (17-59) U/L ALT 53 H (6-50) U/L Alkaline Phosphatase 90 (38-126) U/L Albumin 3.6 (3.5-5.1) g/dL Imaging Tibia/Fibula x-ray: Radiologist's impression: EXAM: XR tibia fibula RT 2V DATE: 08/09/2024 21:51 HISTORY: cellulitis and pain . COMPARISON: None available. FINDINGS: Normal mineralization. No fracture or dislocation. No lytic or blastic lesion. Joint spaces are maintained. No erosion or periosteal change. Diffuse soft tissue swelling and edema of the lower leg. IMPRESSION: No acute osseous finding in the right tibia/fibula. Reviewed, dictated and finalized at location K. Assessment and Plan Assessment and plan (1) Sepsis: Code(s): A41.9 - Sepsis, unspecified organism Status: Acute Assessment and Plan: Patient initially meeting sepsis criteria with a heart rate of 127, white blood cell count 14.1, cellulitis changes of the right lower extremity, low-grade temperature, elevated ESR of 22, elevated CRP 16.2. * Patient was given 1 L of LR while in the ED * Blood and wound cultures were obtained and pending * Patient was started on vancomycin and clindamycin while in the ED * Lactic acid was normal at 1.5 (2) Cellulitis of right lower extremity: Code(s): L03.115 - Cellulitis of right lower limb Status: Acute Assessment and Plan: Patient came in with a 5-6 day history of worsening cellulitis to right lower extremity with open wounds. * Tibia/fibula x-ray did not show any acute changes * White blood cell count 14.1, T-max 100.0? 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 * History of IV drug use however in remission * Considering the amount of swelling to the right lower extremity and pain with walking we will go ahead and rule out DVT venous Doppler (3) History of MRSA infection: Code(s): Z86.14 - Personal history of Methicillin resistant Staphylococcus aureus infection Status: Acute Assessment and Plan: See above (4) Protein calorie malnutrition: Code(s): E46 - Unspecified protein-calorie malnutrition Status: Acute Assessment and Plan: * BMI 21.4, 75.5 kg * Dietitian consult Quality VTE Prophylaxis VTE prophylaxis: pharmacologic ordered Hospitalist MIPS Advance Care Plan I have confirmed that the patient's Advanced Care Plan is present, code status is documented, or surrogate decision maker is listed in patient medical record.: Yes Medication Reconciliation I have utilized all available resources to obtain, update and review the patients current medications (includes all prescriptions, OTC, herbals, cannabis, and nutritional supplements).: Yes
[2024-08-09 22:33] LABS: CRP 16.2 mg/dL (<1.0)
[2024-08-09 23:00] VITALS: BP 110/68; PULSE 89; RESP 17; O2SAT 99
[2024-08-09 23:19] VITALS: BMI 21.3
--- NOTE | 2024-08-09 23:20 | ADMGEN ---
This patient, Bryant Hopson, was admitted to Medical Room 245-. Patient/family oriented to hospital policies and general routines including ID bracelet, bed and alarms, visiting hours, pain management, procedures, bathroom and other care routines, personal items, smoking policy, room service/diet, and visiting hours. Information on how to activate the Rapid Response Team has been discussed. Patient/Family are encouraged to report perceived risks to care and to ask questions if they do not understand what they are told or what they should do.
[2024-08-09] MEDS: VANCOMYCIN 1,250 MG/NS 250 ML 1,250 MG/250 ML BAG 166.67 MG IVPB (23:37)
[2024-08-10] VITALS: BP 126/71; PULSE 90; RESP 18; TEMP 36.9; O2SAT 100
[2024-08-10] MEDS: VANCOMYCIN 1,000 MG/NS 250 ML 1,000 MG/250 ML BAG 250 MG IVPB (02:14)
[2024-08-10] MEDS: CLINDAMYCIN 600 MG/D5W 50 ML 600 MG/50 ML PIGGYBACK 100 MG IVPB ×3 (05:19→21:20)
[2024-08-10 06:00] VITALS: BP 105/73; PULSE 64; RESP 18; TEMP 36.8; O2SAT 100
--- NOTE | 2024-08-10 07:22 | P.PNIM_ITS ---
Progress Note: A&P Assessment and Plan (1) Sepsis: Code(s): A41.9 - Sepsis, unspecified organism Status: Acute Assessment and Plan: Patient initially meeting sepsis criteria with a heart rate of 127, white blood cell count 14.1, cellulitis changes of the right lower extremity, low-grade temperature, elevated ESR of 22, elevated CRP 16.2. * Patient was given 1 L of LR while in the ED * Blood and wound cultures were obtained and pending * Patient was started on vancomycin and clindamycin while in the ED * Lactic acid was normal at 1.5 * trend CBC, CMP * wound consulted. (2) Cellulitis of right lower extremity: Code(s): L03.115 - Cellulitis of right lower limb Status: Acute Assessment and Plan: Patient came in with a 5-6 day history of worsening cellulitis to right lower extremity with open wounds. * Tibia/fibula x-ray did not show any acute changes * White blood cell count 14.1, T-max 100.0? 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 * History of IV drug use however in remission * Considering the amount of swelling to the right lower extremity and pain with walking we will go ahead and rule out DVT venous Doppler (3) History of MRSA infection: Code(s): Z86.14 - Personal history of Methicillin resistant Staphylococcus aureus infection Status: Acute Assessment and Plan: See above (4) Protein calorie malnutrition: Code(s): E46 - Unspecified protein-calorie malnutrition Status: Acute Assessment and Plan: * BMI 21.4, 75.5 kg * Dietitian consult Time Spent With Patient Time with patient: Greater than 35 minutes (45 minutes) Subjective Date/time seen: 08/10/24 07:22 Interval history: This is a 44-year-old male with a significant past medical history of osteomyelitis and infection to his left leg requiring IV antibiotics and amputation of toes, IV drug use-crack/cocaine who reports not using since 04/06/2022, former smoker who quit 04/09/2019 who presented to the hospital with concerns for cellulitis in his right lower extremity. Patient states that he started to develop redness, warmth, pain, swelling in his right lower extremity Friday of last week, then he noticed the blisters that would open and drain. Workup in the emergency department included a tibia/fibula x-ray which did not show any acute changes. Initial labs showed a white blood cell count of 14.1, hemoglobin 12.7, ESR 22, sodium 133, chloride 95, blood sugar 114, lactic acid was normal at 1.5, ALT was slightly elevated at 53, CRP 16.2. Blood and wound cultures obtained while in the ED. patient was given 1 L of LR, Tylenol, Toradol, clindamycin, vancomycin while in the ED. He is being admitted to the setting for continued IV antibiotics, wound care consult, ultrasound Doppler of right lower extremity. 08/10- patient reports that he is starting to feel as if his pain is getting better. He has received IV antibiotics, and states the pressure in his legs is seen to feels slightly improved. He denies any source of the infection, any injury, trauma, or IV drug use. Patient currently denies any fever, chills, muscle aches, nausea, vomiting or diarrhea. He denies any headache or dizziness. Review of Systems Review of Systems: As reviewed above in HPI All systems reviewed & are unremarkable except as noted in HPI and below Exam Const: General: cooperative, no acute distress, well developed, alert, awake and Physically active Orientation/consciousness: patient oriented x3 Limitations: no limitations HENMT: Head: normal to inspection and normocephalic Eyes: General: appearance normal, both eyes and all related structures Neck: Neck: normal visual inspection, full ROM, no lymphadenopathy and supple Chest: Chest palpation & inspection: normal inspection of the chest Resp: Effort & Inspection: normal respiratory effort Auscultation: clear to auscultation bilaterally Cardio: Jugular venous distension: no JVD Rate: regular rate Rhythm: regular rhythm Heart sounds: S1 normal heart sound present and S2 normal heart sound present Peripheral pulses: Peripheral pulses 2+ throughout GI: Inspection: normal to inspection GI Palp: Yes Soft to palpation Auscultation: normal bowel sounds Skin: General skin exam: normal color Wounds: wounds noted right lower leg drainage ( 3 open wounds that are oozing. ) and with surrounding erythema Hair: normal Nails: normal Neuro: General: patient oriented x3, gait normal, tone normal and moves all extremities Extrem: General: full ROM Psych: Appearance: grossly normal Mental Status: mental status grossly normal Speech and movement: Normal speech and movement present Affect: normal affect Attitude: cooperative Thought process: Normal thought process present Objective Data Vital Signs Vital Signs: Vital Signs - 24 hr 08/09/24 20:06 08/09/24 23:00 08/10/24 00:00 Temperature 100 F H 98.4 F Pulse Rate 114 H 89 90 Respiratory Rate 15 17 18 Blood Pressure 144/91 H 110/68 126/71 Pulse Oximetry 98 99 100 Oxygen Delivery Room Air 08/10/24 06:00 Temperature 98.2 F Pulse Rate 64 Respiratory Rate 18 Blood Pressure 105/73 Pulse Oximetry 100 Oxygen Delivery Intake/Output Intake/Output: Intake & Output 08/07/24 08/09/24 08/09/24 08/10/24 23:59 00:59 23:59 23:59 Intake Total 50 50 Output Total 0 Balance 50 50 Meds/Results Medications: Active Medications Generic Name Dose Route Start Last Admin Trade Name Freq PRN Reason Stop Dose Admin Acetaminophen 650 mg 08/09/24 22:07 Acetaminophen 325 Mg Tablet PO Q4H PRN Mild Pain (1-3) or Fever Enoxaparin Sodium 40 mg 08/10/24 09:00 Enoxaparin 40 Mg/0.4 Ml Syringe SUB-Q DAILY [facility] Vancomycin HCl 1,500 mg in 500 mls @ 250 mls/hr 08/10/24 12:00 Vancomycin 1,500 Mg/Ns 500 Ml IVPB Q12H [facility] Clindamycin Phosphate 600 mg in 50 mls @ 100 mls/hr 08/10/24 06:00 08/10/24 05:49 Clindamycin 600 Mg/D5w 50 Ml IVPB Infused Q8HR [facility] Infusion Ketorolac Tromethamine 30 mg 08/09/24 22:07 Ketorolac 30 Mg/Ml Vial (*Bkc) IV PUSH 08/14/24 22:06 Q6H PRN Pain Rated 4-6 Ondansetron HCl 4 mg 08/09/24 22:07 Ondansetron Inj 4 Mg/2 Ml Vial IV PUSH Q4H PRN Nausea Radiology Results: ITS Impressions Tibia/Fibula X-Ray 08/09/24 22:52 IMPRESSION: No acute osseous finding in the right tibia/fibula. Labs Labs: Laboratory Results - last 24 hr 08/09/24 08/09/24 21:09 21:40 WBC 14.1 H RBC 4.27 L Hgb 12.7 L Hct 37.5 L MCV 87.8 MCH 29.7 MCHC 33.9 RDW 12.0 Plt Count 323 MPV 9.8 Immature Gran % (Auto) 0.6 H Neut % (Auto) 80.4 H Lymph % (Auto) 9.0 L [place] % (Auto) 9.3 H Eos % (Auto) 0.4 Baso % (Auto) 0.3 Lymph # (Auto) 1.27 [place] # (Auto) 1.3 H Eos # (Auto) 0.1 Baso # (Auto) 0.0 Abs Immat Gran (auto) 0.08 H Absolute Neuts (auto) 11.3 H Absolute Nucleated RBC 0.000 Nucleated RBC % 0.0 ESR 22 H Sodium 133 L Potassium 3.4 Chloride 95 L Carbon Dioxide 29 Anion Gap 9 BUN 17 Creatinine 1.03 Estim Creat Clear Calc 92 Estimated GFR > 60 Glucose 114 H Lactic Acid 1.5 Calcium 8.6 Total Bilirubin 0.6 AST 44 ALT 53 H Alkaline Phosphatase 90 C-Reactive Protein 16.2 H Total Protein 7.0 Albumin 3.6 Quality VTE Prophylaxis VTE prophylaxis: pharmacologic ordered Hospitalist MIPS Advance Care Plan I have confirmed that the patient's Advanced Care Plan is present, code status is documented, or surrogate decision maker is listed in patient medical record.: Yes Medication Reconciliation I have utilized all available resources to obtain, update and review the patients current medications (includes all prescriptions, OTC, herbals, cannabis, and nutritional supplements).: Yes
[2024-08-10 07:35] LABS: Basophils Absolute Auto 0.1 K/mm3 (0.0-0.1); Basophils Percent Auto 0.4 % (0.2-1.2); Eosinophils Absolute Auto 0.2 K/mm3 (0-0.3); Eosinophils Percent Auto 1.8 % (0-4.4); Hematocrit 37.5 % (42.0-52.0); Hemoglobin 12.3 g/dL (14.0-18.0); Immature Granulocyte Absolute 0.15 K/mm3 (0.00-0.031); Immature Granulocyte Percent A 1.2 % (0-0.5); Lymphocytes Absolute Auto 1.02 K/mm3 (0.9-3.2); Lymphocytes Percent Auto 8.1 % (18.3-44.2); Mean Corpuscular HGB Conc 32.8 g/dl (32-36); Mean Corpuscular Hemoglobin 29.5 pg (26-34); Mean Corpuscular Volume 89.9 fl (80-100); Mean Platelet Volume 8.8 fl (7.4-10.4); Monocytes Absolute Auto 1.2 K/mm3 (0.1-0.6); Monocytes Percent Auto 9.7 % (2.6-8.5); Neutrophils Absolute Auto 9.9 K/mm3 (1.3-6.7); Neutrophils Percent Auto 78.8 % (45.5-73.1); Platelet Count Result 273 k/mm3 (150-375); Red Blood Count 4.17 M/mm3 (4.6-6.20); Red Cell Distribution Width 11.9 % (11.5-14.5); White Blood Count 12.5 K/mm3 (4.5-10.0)
[2024-08-10 07:49] LABS: Alanine Aminotransferase 54 U/L (6-50); Albumin Level 3.3 g/dL (3.5-5.1); Alkaline Phosphatase 80 U/L (38-126); Anion Gap 6 mmol/L (4-12); Aspartate Amino Transferase 42 U/L (17-59); Bilirubin,Total 0.6 mg/dL (0.2-1.3); Blood Urea Nitrogen 15 mg/dL (9-20); Calcium 8.5 mg/dL (8.4-10.2); Carbon Dioxide 33 mmol/L (22-30); Chloride 97 mmol/L (98-107); Estimated CRCL calculation 97 ml/min; Estimated Glomerular Filt Rate > 60; Glucose 99 mg/dL (65-110); Magnesium 1.9 mg/dL (1.6-2.3); Potassium 3.6 mmol/L (3.4-5.0); Sodium 136 mmol/L (137-145)
[2024-08-10 08:00] VITALS: BP 108/64; PULSE 88; RESP 17; TEMP 36.6; O2SAT 99
[2024-08-10 08:00] LABS: CRP 14.3 mg/dL (<1.0)
[2024-08-10] MEDS: ENOXAPARIN 40 MG/0.4 ML SYRINGE SUB-Q (08:13)
[2024-08-10 08:15] LABS: Erythrocyte Sedimentation Rate 77 mm/hr (0-20)
[2024-08-10] MEDS: VANCOMYCIN 1,500 MG/NS 500 ML 1,500 MG/500 ML BAG 250 MG IVPB ×2 (11:02→23:26)
[2024-08-10 13:47] VITALS: BMI 21.3
[2024-08-10 16:00] VITALS: BP 114/71; PULSE 91; RESP 18; TEMP 36.4; O2SAT 100
[2024-08-10 17:57] LABS: Barbiturate Screen Urine Negative (Negative); Benzodiazepines Screen Urine Negative (Negative)
[2024-08-10 18:20] LABS: Amphetamine Screen Urine Positive (Negative); Cannabinoid Screen Urine Negative (Negative); Cocaine Screen Urine Negative (Negative); Methadone Screen Urine Negative (Negative); Opiate Screen Urine Negative (Negative); Phencyclidine Screen Urine Negative (Negative)
[2024-08-10 21:07] VITALS: BP 126/78; PULSE 83; RESP 18; TEMP 36.7; O2SAT 99
[2024-08-11 04:55] VITALS: BP 134/79; PULSE 69; RESP 18; TEMP 36.3; O2SAT 100
[2024-08-11] MEDS: CLINDAMYCIN 600 MG/D5W 50 ML 600 MG/50 ML PIGGYBACK 100 MG IVPB (05:04)
[2024-08-11 05:26] LABS: Hematocrit 38.9 % (42.0-52.0); Immature Platelet Fraction Pct 5.8 % (0.9-11.2); Mean Corpuscular HGB Conc 30.8 g/dl (32-36); Mean Platelet Volume 10.8 fl (7.4-10.4); Platelet Count Result 210 k/mm3 (150-375); Red Blood Count 4.14 M/mm3 (4.6-6.20); Red Cell Distribution Width 11.9 % (11.5-14.5); White Blood Count 6.4 K/mm3 (4.5-10.0)
[2024-08-11 05:40] LABS: Alanine Aminotransferase 52 U/L (6-50); Albumin Level 3.2 g/dL (3.5-5.1); Alkaline Phosphatase 73 U/L (38-126); Anion Gap 7 mmol/L (4-12); Aspartate Amino Transferase 39 U/L (17-59); Bilirubin,Total 0.3 mg/dL (0.2-1.3); Blood Urea Nitrogen 13 mg/dL (9-20); Calcium 8.6 mg/dL (8.4-10.2); Carbon Dioxide 29 mmol/L (22-30); Chloride 100 mmol/L (98-107); Estimated CRCL calculation 95 ml/min; Estimated Glomerular Filt Rate > 60; Glucose 101 mg/dL (65-110); Potassium 4.4 mmol/L (3.4-5.0); Sodium 136 mmol/L (137-145)
[2024-08-11 05:52] LABS: Neutrophils Percent Manual 65 % (46-73); Platelet Estimate Adequate (Adequate); Total Cells Counted 100
[2024-08-11 05:53] LABS: Band Neutrophils Percent 9 % (0-6); CRP 13.1 mg/dL (<1.0); Eosinophils Absolute Manual 0.19 K/mm3 (0.02-0.50); Eosinophils Percent Manual 3 % (0-4); Lymphocytes Absolute Manual 0.96 K/mm3 (1.1-4.5); Lymphocytes Percent Manual 15 % (18-44); Monocytes Absolute Manual 0.51 K/mm3 (0.1-0.90); Monocytes Percent Manual 8 % (3-9); Neutrophils Absolute Manual 4.73 K/mm3 (1.3-6.7); Schistocytes None Seen
[2024-08-11 05:54] LABS: Erythrocyte Sedimentation Rate 6 mm/hr (0-20)
[2024-08-11] MEDS: BENZOCAINE/MENTHOL (*BKC) 18 EA LOZENGE 1 LOZENGE PO (06:15)
[2024-08-11] MEDS: ENOXAPARIN 40 MG/0.4 ML SYRINGE SUB-Q (08:30)
--- NOTE | 2024-08-11 09:11 | P.CDI_ITS ---
<Statement entered by Amy Abbott, RAMONA - 08/11/24 13:18> I do not agree with this statement. Patient reweighed today was 175 lb 8 oz. CDI Query Clarification Request BMI: 21.4 Nutritional Diagnostic Statement: Please refer to the comprehensive nutrition assessment for further information. If you agree with diagnosis of Moderate protein calorie malnutrition related to loss of appetite as evidenced by weight loss 17%/6 months; intakes <75% needs >1 month; moderate fat loss; mild muscle wasting. Please specify severity if known: * Mild * Moderate * Severe * Other/Unknown
--- NOTE | 2024-08-11 10:06 | P.PNIM_ITS ---
Progress Note: A&P Assessment and Plan (1) Sepsis: Code(s): A41.9 - Sepsis, unspecified organism Status: Acute Assessment and Plan: Patient initially meeting sepsis criteria with a heart rate of 127, white blood cell count 14.1, cellulitis changes of the right lower extremity, low-grade temperature, elevated ESR of 22, elevated CRP 16.2. * Patient was given 1 L of LR while in the ED * Blood cultures no growth to date. * Wound cultures preliminarily growing Staphylococcus Aureus and Group A streptococcus isolated. * Patient was started on vancomycin and clindamycin while in the ED. Switched to Linezolid 600 mg PO q 12 today. * Lactic acid was normal at 1.5 * trend CBC, CMP * Wound consulted. Recommendations- No wound care at this time. If wounds open patient has orders for silver gel and dry cover dressings. (2) Cellulitis of right lower extremity: Code(s): L03.115 - Cellulitis of right lower limb Status: Acute Assessment and Plan: Patient came in with a 5-6 day history of worsening cellulitis to right lower extremity with open wounds. * Tibia/fibula x-ray did not show any acute changes * White blood cell count 6/4, Temp 97.4 F. * ESR-6 improved and CRP-13.1, improving. * Blood and wound cultures were obtained and pending * Wound nurse consulted. Recommendations- No wound care at this time. If wounds open patient has orders for silver gel and dry cover dressings. * Stopped IV vancomycin and clindamycin today. Switched to Linezolid 600 mg PO q 12 today. * Past history of osteomyelitis with MRSA and his left lower extremity requiring IV antibiotics and amputation of several toes * History of IV drug use however in remission * Considering the amount of swelling to the right lower extremity and pain with walking we will go ahead and rule out DVT venous Doppler (3) History of MRSA infection: Code(s): Z86.14 - Personal history of Methicillin resistant Staphylococcus aureus infection Status: Acute Assessment and Plan: See above (4) Protein calorie malnutrition: Code(s): E46 - Unspecified protein-calorie malnutrition Status: Acute Assessment and Plan: * BMI 21.4, 75.5 kg * Dietitian consult Subjective Date/time seen: 08/11/24 10:06 Interval history: Patient reports that pain in right lower leg is a 6 with activity and denies pain at rest, pain is a pressure with activity. Patient reports that his leg is not as tight and at first it was shiny. Patient denies chest pain, palpitations, headache, dizziness, nausea, or vomiting. Review of Systems Review of Systems: All systems reviewed & are unremarkable except as noted in HPI and below Exam Const: General: comfortable and no acute distress Eyes: Sclera: sclerae normal Resp: Effort & Inspection: normal respiratory effort Auscultation: clear to auscultation bilaterally Cardio: Rate: regular rate Rhythm: regular rhythm GI: GI Palp: Yes Soft to palpation Auscultation: normal bowel sounds Skin: Wounds: wounds noted (right lower leg reddened, slightly warm, area marked,3 areas no oozing,scab) Other: 3 scabbed areas on left leg. Neuro: Speech: normal speech Extrem: General: pedal edema on the right 2+ Psych: Mental Status: mental status grossly normal Affect: normal affect Objective Data Vital Signs Vital Signs: Vital Signs - 24 hr 08/10/24 16:00 08/10/24 20:00 08/10/24 21:07 Temperature 97.6 F 98.1 F Pulse Rate 91 83 Respiratory Rate 18 18 Blood Pressure 114/71 126/78 Pulse Oximetry 100 99 Oxygen Delivery Room Air 08/11/24 04:55 08/11/24 08:36 Temperature 97.4 F L Pulse Rate 69 Respiratory Rate 18 Blood Pressure 134/79 Pulse Oximetry 100 Oxygen Delivery Room Air Intake/Output Intake/Output: Intake & Output 08/09/24 08/09/24 08/10/24 08/11/24 00:59 23:59 23:59 23:59 Intake Total 50 2260 1260 Output Total 0 800 Balance 50 2260 460 Meds/Results Medications: Active Medications Generic Name Dose Route Start Last Admin Trade Name Freq PRN Reason Stop Dose Admin Acetaminophen 650 mg 08/09/24 22:07 Acetaminophen 325 Mg Tablet PO Q4H PRN Mild Pain (1-3) or Fever Benzocaine 1 lozenge 08/11/24 05:53 08/11/24 06:15 Benzocaine/Menthol (*Bkc) 18 Ea Lozenge PO 1 lozenge PRN PRN Administration Sore Throat Enoxaparin Sodium 40 mg 08/10/24 09:00 08/11/24 08:30 Enoxaparin 40 Mg/0.4 Ml Syringe SUB-Q 40 mg DAILY [facility] Administration Vancomycin HCl 1,500 mg in 500 mls @ 250 mls/hr 08/10/24 12:00 08/11/24 01:26 Vancomycin 1,500 Mg/Ns 500 Ml IVPB Infused Q12H [facility] Infusion Clindamycin Phosphate 600 mg in 50 mls @ 100 mls/hr 08/10/24 06:00 08/11/24 05:34 Clindamycin 600 Mg/D5w 50 Ml IVPB Infused Q8HR [facility] Infusion Ketorolac Tromethamine 30 mg 08/09/24 22:07 Ketorolac 30 Mg/Ml Vial (*Bkc) IV PUSH 08/14/24 22:06 Q6H PRN Pain Rated 4-6 Ondansetron HCl 4 mg 08/09/24 22:07 Ondansetron Inj 4 Mg/2 Ml Vial IV PUSH Q4H PRN Nausea Radiology Results: ITS Impressions Tibia/Fibula X-Ray 08/09/24 22:52 IMPRESSION: No acute osseous finding in the right tibia/fibula. Venous Doppler Study 08/10/24 09:27 IMPRESSION: Negative right lower extremity venous US. No deep vein thrombosis. Lymphadenopathy in the right groin. Labs Labs: Laboratory Results - last 24 hr 08/10/24 08/11/24 17:15 04:48 WBC 6.4 RBC 4.14 L Hgb 12.0 L Hct 38.9 L MCV 94.0 MCH 29.0 MCHC 30.8 L RDW 11.9 Plt Count 210 MPV 10.8 H Immature Gran % (Auto) Not Reportable Neut % (Auto) Not Reportable Lymph % (Auto) Not Reportable [place] % (Auto) Not Reportable Eos % (Auto) Not Reportable Baso % (Auto) Not Reportable Lymph # (Auto) Not Reportable [place] # (Auto) Not Reportable Eos # (Auto) Not Reportable Baso # (Auto) Not Reportable Abs Immat Gran (auto) Not Reportable Absolute Neuts (auto) Not Reportable Absolute Nucleated RBC Not Reportable Total Counted 100 Neutrophils % (Manual) 65 Band Neutrophils % 9 H Lymphocytes % (Manual) 15 L Monocytes % (Manual) 8 Eosinophils % (Manual) 3 Nucleated RBC % Not Reportable Abs Neuts (Manual) 4.73 Abs Lymphs (Manual) 0.96 L Abs Monocytes (Manual) 0.51 Absolute Eos (Manual) 0.19 Platelet Estimate Adequate % Immature Plt Fraction 5.8 Schistocytes None seen ESR 6 Sodium 136 L Potassium 4.4 Chloride 100 Carbon Dioxide 29 Anion Gap 7 BUN 13 Creatinine 0.91 Estim Creat Clear Calc 95 Estimated GFR > 60 Glucose 101 Calcium 8.6 Total Bilirubin 0.3 AST 39 ALT 52 H Alkaline Phosphatase 73 C-Reactive Protein 13.1 H Total Protein 7.0 Albumin 3.2 L Urine Opiates Screen Negative Urine Methadone Screen Negative Ur Barbiturates Screen Negative Ur Phencyclidine Scrn Negative Ur Amphetamine Screen Positive A U Benzodiazepines Scrn Negative Urine Cocaine Screen Negative U Cannabinoids Screen Negative Quality VTE Prophylaxis VTE prophylaxis: pharmacologic ordered
[2024-08-11] MEDS: LINEZOLID 600 MG TABLET PO ×2 (12:29→21:28)
[2024-08-11 14:00] VITALS: BP 130/76; PULSE 74; RESP 16; TEMP 36.8; O2SAT 100
[2024-08-11 21:22] VITALS: BP 131/83; PULSE 78; RESP 16; TEMP 37; O2SAT 98
[2024-08-12 04:50] VITALS: BP 129/86; PULSE 72; RESP 18; TEMP 36.5; O2SAT 100
[2024-08-12 04:59] LABS: Basophils Percent Auto 0.6 % (0.2-1.2); Eosinophils Absolute Auto 0.3 K/mm3 (0-0.3); Eosinophils Percent Auto 4.9 % (0-4.4); Hematocrit 37.9 % (42.0-52.0); Hemoglobin 12.3 g/dL (14.0-18.0); Immature Granulocyte Absolute 0.04 K/mm3 (0.00-0.031); Immature Granulocyte Percent A 0.6 % (0-0.5); Lymphocytes Absolute Auto 1.24 K/mm3 (0.9-3.2); Lymphocytes Percent Auto 19.5 % (18.3-44.2); Mean Corpuscular HGB Conc 32.5 g/dl (32-36); Mean Corpuscular Hemoglobin 29.4 pg (26-34); Mean Corpuscular Volume 90.5 fl (80-100); Mean Platelet Volume 9.1 fl (7.4-10.4); Monocytes Absolute Auto 0.5 K/mm3 (0.1-0.6); Monocytes Percent Auto 8.3 % (2.6-8.5); Neutrophils Absolute Auto 4.2 K/mm3 (1.3-6.7); Neutrophils Percent Auto 66.1 % (45.5-73.1); Platelet Count Result 340 k/mm3 (150-375); Red Blood Count 4.19 M/mm3 (4.6-6.20); Red Cell Distribution Width 11.9 % (11.5-14.5); White Blood Count 6.4 K/mm3 (4.5-10.0)
[2024-08-12 05:18] LABS: Alanine Aminotransferase 44 U/L (6-50); Alkaline Phosphatase 69 U/L (38-126); Anion Gap 5 mmol/L (4-12); Aspartate Amino Transferase 32 U/L (17-59); Bilirubin,Total 0.2 mg/dL (0.2-1.3); Blood Urea Nitrogen 12 mg/dL (9-20); CRP 6.1 mg/dL (<1.0); Calcium 8.6 mg/dL (8.4-10.2); Carbon Dioxide 30 mmol/L (22-30); Chloride 101 mmol/L (98-107); Estimated CRCL calculation 105 ml/min; Estimated Glomerular Filt Rate > 60; Glucose 112 mg/dL (65-110); Potassium 3.8 mmol/L (3.4-5.0); Sodium 136 mmol/L (137-145)
[2024-08-12 05:36] LABS: Erythrocyte Sedimentation Rate 64 mm/hr (0-20)
[2024-08-12 07:49] VITALS: BP 116/80; PULSE 85; RESP 18; TEMP 36.6; O2SAT 100
--- NOTE | 2024-08-12 08:15 | P.PNIM_ITS ---
Progress Note: A&P Assessment and Plan (1) Sepsis: Code(s): A41.9 - Sepsis, unspecified organism Status: Acute Assessment and Plan: Patient initially meeting sepsis criteria with a heart rate of 127, white blood cell count 14.1, cellulitis changes of the right lower extremity, low-grade temperature, elevated ESR of 22, elevated CRP 16.2. * Patient was given 1 L of LR while in the ED * Blood cultures no growth to date. * Wound cultures preliminarily growing Staphylococcus Aureus and Group A streptococcus isolated. * Patient was started on vancomycin and clindamycin while in the ED. Switched to Linezolid 600 mg PO q 12 today. * Lactic acid was normal at 1.5 * trend CBC, CMP * Wound consulted. Recommendations- No wound care at this time. If wounds open patient has orders for silver gel and dry cover dressings. * CRP and Sed Rate continue to decrease and today are at 6.1/64 respectively. (2) Cellulitis of right lower extremity: Code(s): L03.115 - Cellulitis of right lower limb Status: Acute Assessment and Plan: Patient came in with a 5-6 day history of worsening cellulitis to right lower extremity with open wounds. * Tibia/fibula x-ray did not show any acute changes * White blood cell count 6/4, Temp 97.4 F. * CRP and Sed Rate continue to decrease and today are at 6.1/64 respectively. * Blood and wound cultures were obtained and pending * Wound nurse consulted. Recommendations- No wound care at this time. If wounds open patient has orders for silver gel and dry cover dressings. * Stopped IV vancomycin and clindamycin today. Switched to Linezolid 600 mg PO q 12 today. * Past history of osteomyelitis with MRSA and his left lower extremity requiring IV antibiotics and amputation of several toes * History of IV drug use however in remission * Considering the amount of swelling to the right lower extremity and pain with walking we will go ahead and rule out DVT venous Doppler * Venous dopplers negative. * Pt continues to have an appearance of a very bad infection to the RLE. Given hx of IV drug use, I have a low threshold of ordering CT Scan to RLE to rule out Necrotizing Fascitis IF there is a change in condition or in his overall appearance or if objective data begins trending in the wrong way. (3) History of MRSA infection: Code(s): Z86.14 - Personal history of Methicillin resistant Staphylococcus aureus infection Status: Acute Assessment and Plan: See above (4) Protein calorie malnutrition: Code(s): E46 - Unspecified protein-calorie malnutrition Status: Acute Assessment and Plan: * BMI 21.4, 75.5 kg * Dietitian consult Time Spent With Patient Time with patient: 15 - 25 minutes Subjective Date/time seen: 08/12/24 08:15 Interval history: This patient was examined at the bedside today in interval assessment. Patient has been admitted to the hospital and is being treated currently for cellulitis right lower extremity and sepsis. Patient currently receiving linezolid orally. Wound cultures grew out staph and strep and blood cultures x2 are with no growth to date. Patient has had acute DVT in the affected extremity ruled out. He has been evaluated by Wound Care and no current wound orders exist. Patient has 2 large blisters to the right lower extremity that have popped and have drained. Leg remained very red, hot, swollen and appearing infected. Patient continues to complain of pain. No new complaints or symptoms to speak of today. Review of Systems Review of Systems: All systems reviewed & are unremarkable except as noted in HPI and below Exam Narrative: General: In no acute distress, resting quietly at this time. Head: atraumatic, no encephalopathy Eyes: PERRLA, sclera clear ENT: moist mucous membranes, nasal passages clear Neck: supple, no JVD, no adenopathy, trachea midline Cardiac: Normal S1 and S2. RRR, No murmur, gallops or friction rubs, peripheral pulses intact. Respiratory: Lungs clear to auscultation, no adventitious lung sounds currently on room air Gastrointestinal: soft, non-distended, non-tender, normoactive bowel sounds. : voiding without difficulty. Extremities: moves all extremities well, edema in right lower extremity good ROM, strength 5/5 Skin: Right lower extremity redness, warmth, swelling, pain. He does have 3 open wounds that are oozing. Left lower extremity 3 scabbed over areas. Neuro: Alert and oriented x4, cranial nerves intact, no neuro deficits. Psych: normal mood, normal affect, interactive Objective Data Vital Signs Vital Signs: Vital Signs - 24 hr 08/11/24 08:36 08/11/24 14:00 08/11/24 20:00 Temperature 98.3 F Pulse Rate 74 Respiratory Rate 16 Blood Pressure 130/76 Pulse Oximetry 100 Oxygen Delivery Room Air Room Air 08/11/24 21:22 08/12/24 04:50 08/12/24 07:49 Temperature 98.6 F 97.7 F 97.9 F Pulse Rate 78 72 85 Respiratory Rate 16 18 18 Blood Pressure 131/83 129/86 116/80 Pulse Oximetry 98 100 100 Oxygen Delivery Intake/Output Intake/Output: Intake & Output 08/09/24 08/10/24 08/11/24 08/12/24 23:59 23:59 23:59 23:59 Intake Total 50 2260 2290 350 Output Total 0 800 Balance 50 2260 1490 350 Meds/Results Medications: Active Medications Generic Name Dose Route Start Last Admin Trade Name Freq PRN Reason Stop Dose Admin Acetaminophen 650 mg 08/09/24 22:07 Acetaminophen 325 Mg Tablet PO Q4H PRN Mild Pain (1-3) or Fever Benzocaine 1 lozenge 08/11/24 05:53 08/11/24 06:15 Benzocaine/Menthol (*Bkc) 18 Ea Lozenge PO 1 lozenge PRN PRN Administration Sore Throat Enoxaparin Sodium 40 mg 08/10/24 09:00 08/11/24 08:30 Enoxaparin 40 Mg/0.4 Ml Syringe SUB-Q 40 mg DAILY [facility] Administration Ketorolac Tromethamine 30 mg 08/09/24 22:07 Ketorolac 30 Mg/Ml Vial (*Bkc) IV PUSH 08/14/24 22:06 Q6H PRN Pain Rated 4-6 Linezolid 600 mg 08/11/24 11:15 08/11/24 21:28 Linezolid 600 Mg Tablet PO 08/16/24 21:01 600 mg Q12HR [facility] Administration Ondansetron HCl 4 mg 08/09/24 22:07 Ondansetron Inj 4 Mg/2 Ml Vial IV PUSH Q4H PRN Nausea Radiology Results: ITS Impressions Tibia/Fibula X-Ray 08/09/24 22:52 IMPRESSION: No acute osseous finding in the right tibia/fibula. Venous Doppler Study 08/10/24 09:27 IMPRESSION: Negative right lower extremity venous US. No deep vein thrombosis. Lymphadenopathy in the right groin. Labs Labs: Laboratory Results - last 24 hr 08/12/24 04:27 WBC 6.4 RBC 4.19 L Hgb 12.3 L Hct 37.9 L MCV 90.5 MCH 29.4 MCHC 32.5 RDW 11.9 Plt Count 340 D MPV 9.1 Immature Gran % (Auto) 0.6 H Neut % (Auto) 66.1 Lymph % (Auto) 19.5 [place] % (Auto) 8.3 Eos % (Auto) 4.9 H Baso % (Auto) 0.6 Lymph # (Auto) 1.24 Glenn # (Auto) 0.5 Eos # (Auto) 0.3 Baso # (Auto) 0.0 Abs Immat Gran (auto) 0.04 H Absolute Neuts (auto) 4.2 Absolute Nucleated RBC 0.000 Nucleated RBC % 0.0 ESR 64 H Sodium 136 L Potassium 3.8 Chloride 101 Carbon Dioxide 30 Anion Gap 5 BUN 12 Creatinine 0.87 Estim Creat Clear Calc 105 Estimated GFR > 60 Glucose 112 H Calcium 8.6 Total Bilirubin 0.2 AST 32 ALT 44 Alkaline Phosphatase 69 C-Reactive Protein 6.1 H Total Protein 7.0 Albumin 3.0 L Quality VTE Prophylaxis VTE prophylaxis: pharmacologic ordered
[2024-08-12] MEDS: LINEZOLID 600 MG TABLET PO ×2 (08:40→20:00)
[2024-08-12] MEDS: ENOXAPARIN 40 MG/0.4 ML SYRINGE SUB-Q (08:40)
[2024-08-12] MEDS: KETOROLAC 30 MG/ML VIAL (*BKC) IV PUSH (08:45)
[2024-08-12 09:56] VITALS: O2SAT 97
[2024-08-12 14:00] VITALS: BP 151/89; PULSE 75; RESP 18; TEMP 36.6; O2SAT 100
[2024-08-12 20:01] VITALS: BP 124/87; PULSE 75; RESP 17; TEMP 36.6; O2SAT 98
[2024-08-13 04:52] VITALS: BP 137/85; PULSE 74; RESP 14; TEMP 36.9; O2SAT 99
[2024-08-13 05:22] LABS: Basophils Absolute Auto 0.1 K/mm3 (0.0-0.1); Basophils Percent Auto 0.8 % (0.2-1.2); Eosinophils Absolute Auto 0.3 K/mm3 (0-0.3); Hemoglobin 12.3 g/dL (14.0-18.0); Immature Granulocyte Absolute 0.04 K/mm3 (0.00-0.031); Immature Granulocyte Percent A 0.6 % (0-0.5); Lymphocytes Absolute Auto 1.39 K/mm3 (0.9-3.2); Lymphocytes Percent Auto 22.2 % (18.3-44.2); Mean Corpuscular HGB Conc 32.4 g/dl (32-36); Mean Corpuscular Hemoglobin 29.4 pg (26-34); Mean Corpuscular Volume 90.9 fl (80-100); Monocytes Absolute Auto 0.4 K/mm3 (0.1-0.6); Monocytes Percent Auto 6.7 % (2.6-8.5); Neutrophils Percent Auto 64.7 % (45.5-73.1); Platelet Count Result 351 k/mm3 (150-375); Red Blood Count 4.18 M/mm3 (4.6-6.20); White Blood Count 6.3 K/mm3 (4.5-10.0)
[2024-08-13 05:35] LABS: Alanine Aminotransferase 41 U/L (6-50); Alkaline Phosphatase 64 U/L (38-126); Anion Gap 6 mmol/L (4-12); Aspartate Amino Transferase 32 U/L (17-59); Bilirubin,Total 0.2 mg/dL (0.2-1.3); Blood Urea Nitrogen 14 mg/dL (9-20); CRP 3.5 mg/dL (<1.0); Calcium 8.8 mg/dL (8.4-10.2); Carbon Dioxide 29 mmol/L (22-30); Chloride 103 mmol/L (98-107); Estimated CRCL calculation 96 ml/min; Estimated Glomerular Filt Rate > 60; Glucose 87 mg/dL (65-110); Potassium 4.9 mmol/L (3.4-5.0); Sodium 138 mmol/L (137-145)
[2024-08-13 05:55] LABS: Erythrocyte Sedimentation Rate 57 mm/hr (0-20)
--- NOTE | 2024-08-13 09:14 | P.PNIM_ITS ---
Progress Note: A&P Assessment and Plan (1) History of intravenous drug use: Code(s): Z87.898 - Personal history of other specified conditions Status: Acute (2) Osteomyelitis: Code(s): M86.9 - Osteomyelitis, unspecified Status: Acute (3) Sepsis: Code(s): A41.9 - Sepsis, unspecified organism Status: Acute (4) Ulcer of toe of left foot: Qualifiers: Non-pressure ulcer stage: with necrosis of bone Qualified Code(s): L97.524 - Non-pressure chronic ulcer of other part of left foot with necrosis of bone Code(s): L97.529 - Non-pressure chronic ulcer of other part of left foot with unspecified severity Status: Acute Plan (1) Sepsis: Code(s): A41.9 - Sepsis, unspecified organism Status: Acute Assessment and Plan: Patient initially meeting sepsis criteria with a heart rate of 127, white blood cell count 14.1, cellulitis changes of the right lower extremity, low-grade temperature, elevated ESR of 22, elevated CRP 16.2. Received fluid resuscitation Blood culture negative Wound culture growing Staphylococcus Aureus and Group A streptococcus isolated. Received vancomycin and clindamycin while in the ED. Switched to Linezolid 600 mg PO q 12 today. Wound consulted. Recommendations- No wound care at this time. If wounds open patient has orders for silver gel and dry cover dressings. CRP and Sed Rate continue to decrease and today are at 6.1/64 respectively. Sepsis resolved Patient will discharge home with Zyvox p.o. (2) Cellulitis of right lower extremity: Code(s): L03.115 - Cellulitis of right lower limb Status: Acute Assessment and Plan: Patient came in with a 5-6 day history of worsening cellulitis to right lower extremity with open wounds. Tibia/fibula x-ray did not show any acute changes History of IV drug use however in remission Venous dopplers negative. Antibiotics see above History of MRSA infection: Code(s): Z86.14 - Personal history of Methicillin resistant Staphylococcus aureus infection Status: Acute Assessment and Plan: See above (4) Protein calorie malnutrition: Code(s): E46 - Unspecified protein-calorie malnutrition Status: Acute Assessment and Plan: * BMI 21.4, 75.5 kg * Dietitian consult Subjective Date/time seen: 08/13/24 09:14 Interval history: I saw examined patient today, patient is afebrile, blood pressure stable, labs reviewed, white blood cells 6.3k, hemoglobin 12.3 on the baseline. Chemistry unremarkable. Patient feels comfortable, denies like pain, fever, chills, nausea vomiting. Patient also denies chest pain headache shortness breath. Exam Narrative: GENERAL: Pleasant, in no acute distress. Well-nourished. - EYES: EOMI. Anicteric. - HENT: Moist mucous membranes. - LUNGS: Clear to auscultation bilateral ly, no wheezing, rhonchi, or rales. - CARDIOVASCULAR: Regular rate and rhyth m. No murmur. No JVD. - ABDOMEN: Soft, non-tender and non-dist ended. No palpable masses. - EXTREMITIES: No edema. Peripheral puls es 2+. Non-tender. - NEUROLOGIC: No focal neurological defi cits. CN II-XII grossly intact. - PSYCHIATRIC: Awake, Alert and oriented x 3. Appropriate mood and affect. - SKIN: Cellulitis of right lower extre mity has improved significantly. No tender or a swelling - LYMPH: No cervical lymphadenopathy. Objective Data Vital Signs Vital Signs: Vital Signs - 24 hr 08/12/24 09:56 08/12/24 14:00 08/12/24 20:00 Temperature 97.9 F Pulse Rate 75 Respiratory Rate 18 Blood Pressure 151/89 H Pulse Oximetry 97 100 Oxygen Delivery Room Air Room Air Fraction of Inspired Oxygen 21 08/12/24 20:01 08/13/24 04:52 Temperature 98 F 98.5 F Pulse Rate 75 74 Respiratory Rate 17 14 Blood Pressure 124/87 137/85 Pulse Oximetry 98 99 Oxygen Delivery Fraction of Inspired Oxygen Intake/Output Intake/Output: Intake & Output 08/10/24 08/11/24 08/12/24 08/13/24 23:59 23:59 23:59 23:59 Intake Total 2260 2290 1180 240 Output Total 0 800 Balance 2260 1490 1180 240 Meds/Results Medications: Active Medications Generic Name Dose Route Start Last Admin Trade Name Freq PRN Reason Stop Dose Admin Acetaminophen 650 mg 08/09/24 22:07 Acetaminophen 325 Mg Tablet PO Q4H PRN Mild Pain (1-3) or Fever Benzocaine 1 lozenge 08/11/24 05:53 08/11/24 06:15 Benzocaine/Menthol (*Bkc) 18 Ea Lozenge PO 1 lozenge PRN PRN Administration Sore Throat Enoxaparin Sodium 40 mg 08/10/24 09:00 08/12/24 08:40 Enoxaparin 40 Mg/0.4 Ml Syringe SUB-Q 40 mg DAILY MAYNOR Administration Ketorolac Tromethamine 30 mg 08/09/24 22:07 08/12/24 08:45 Ketorolac 30 Mg/Ml Vial (*Bkc) IV PUSH 08/14/24 22:06 30 mg Q6H PRN Administration Pain Rated 4-6 Linezolid 600 mg 08/11/24 11:15 08/12/24 20:00 Linezolid 600 Mg Tablet PO 08/16/24 21:01 600 mg Q12HR MAYNOR Administration Ondansetron HCl 4 mg 08/09/24 22:07 Ondansetron Inj 4 Mg/2 Ml Vial IV PUSH Q4H PRN Nausea Radiology Results: ITS Impressions Tibia/Fibula X-Ray 08/09/24 22:52 IMPRESSION: No acute osseous finding in the right tibia/fibula. Venous Doppler Study 08/10/24 09:27 IMPRESSION: Negative right lower extremity venous US. No deep vein thrombosis. Lymphadenopathy in the right groin. Labs Labs: Laboratory Results - last 24 hr 08/13/24 04:52 WBC 6.3 RBC 4.18 L Hgb 12.3 L Hct 38.0 L MCV 90.9 MCH 29.4 MCHC 32.4 RDW 12.0 Plt Count 351 MPV 9.0 Immature Gran % (Auto) 0.6 H Neut % (Auto) 64.7 Lymph % (Auto) 22.2 [place] % (Auto) 6.7 Eos % (Auto) 5.0 H Baso % (Auto) 0.8 Lymph # (Auto) 1.39 [place] # (Auto) 0.4 Eos # (Auto) 0.3 Baso # (Auto) 0.1 Abs Immat Gran (auto) 0.04 H Absolute Neuts (auto) 4.0 Absolute Nucleated RBC 0.000 Nucleated RBC % 0.0 ESR 57 H Sodium 138 Potassium 4.9 Chloride 103 Carbon Dioxide 29 Anion Gap 6 BUN 14 Creatinine 0.95 Estim Creat Clear Calc 96 Estimated GFR > 60 Glucose 87 Calcium 8.8 Total Bilirubin 0.2 AST 32 ALT 41 Alkaline Phosphatase 64 C-Reactive Protein 3.5 H Total Protein 7.0 Albumin 3.0 L
[2024-08-13] MEDS: ENOXAPARIN 40 MG/0.4 ML SYRINGE SUB-Q (09:15)
[2024-08-13] MEDS: LINEZOLID 600 MG TABLET PO (09:16)
[2024-08-13] MEDS: KETOROLAC 30 MG/ML VIAL (*BKC) IV PUSH (09:18)
--- NOTE | 2024-08-13 13:17 | P.DS_ITS ---
DS: Admitting Diagnosis Discharge Date 08/13/24 Admitting Diagnosis (1) History of intravenous drug use: Code(s): Z87.898 - Personal history of other specified conditions Status: Acute (2) Osteomyelitis: Code(s): M86.9 - Osteomyelitis, unspecified Status: Acute (3) Sepsis: Code(s): A41.9 - Sepsis, unspecified organism Status: Acute (4) Ulcer of toe of left foot: Qualifiers: Non-pressure ulcer stage: with necrosis of bone Qualified Code(s): L97.524 - Non-pressure chronic ulcer of other part of left foot with necrosis of bone Code(s): L97.529 - Non-pressure chronic ulcer of other part of left foot with unspecified severity Status: Acute DS: Discharge Diagnosis Discharge Diagnosis (1) History of intravenous drug use: Code(s): Z87.898 - Personal history of other specified conditions Status: Acute (2) Osteomyelitis: Code(s): M86.9 - Osteomyelitis, unspecified Status: Acute (3) Sepsis: Code(s): A41.9 - Sepsis, unspecified organism Status: Acute (4) Ulcer of toe of left foot: Qualifiers: Non-pressure ulcer stage: with necrosis of bone Qualified Code(s): L97.524 - Non-pressure chronic ulcer of other part of left foot with necrosis of bone Code(s): L97.529 - Non-pressure chronic ulcer of other part of left foot with unspecified severity Status: Acute DS: Summary Hospital Course Hospital Course: This is a 44-year-old male with a significant past medical history of IV drug use-crack/cocaine who has not used since 04/06/2022, former smoker who quit 04/09/2019 who presented to the hospital with concerns for cellulitis in his right lower extremity. 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 Patient reports the following history of presenting illness. Patient states that he started to develop redness, warmth, pain, swelling in his right lower extremity Friday of last week. He states since that time his symptoms progressively worsened. He states he was not able to come to the hospital over the weekend as he was caring for his daughter. He reports that he does not have a primary care doctor and he did not seek treatment for his right lower extremity cellulitis prior to coming to the hospital. He denies any fever, chills, nausea, vomiting, diarrhea, abdominal pain, chest pain, shortness a breath. He states that the pain got unbearable today especially with walking and presented to the ED for further evaluation. Workup in the hospital included a tibia/fibula x-ray which did not show any acute changes. Initial labs showed a white blood cell count of 14.1, hemoglobin 12.7, ESR 22, sodium 133, chloride 95, blood sugar 114, lactic acid was normal at 1.5, ALT was slightly elevated at 53, CRP 16.2. Blood and wound cultures obtained while in the ED. patient was given 1 L of LR, Tylenol, Toradol, clindamycin, vancomycin while in the ED. He is being admitted to the setting for continued IV antibiotics, wound care consult, ultrasound Doppler of right lower extremity. The following med issues have been addressed during hospitalization Sepsis: Code(s): A41.9 - Sepsis, unspecified organism Status: Acute Assessment and Plan: Patient initially meeting sepsis criteria with a heart rate of 127, white blood cell count 14.1, cellulitis changes of the right lower extremity, low-grade temperature, elevated ESR of 22, elevated CRP 16.2. Received fluid resuscitation Blood culture negative Wound culture growing Staphylococcus Aureus and Group A streptococcus isolated. Received vancomycin and clindamycin while in the ED. Switched to Linezolid 600 mg PO q 12 today. Wound consulted. Recommendations- No wound care at this time. If wounds open patient has orders for silver gel and dry cover dressings. CRP and Sed Rate continue to decrease and today are at 6.1/64 respectively. Sepsis resolved Patient will discharge home with Zyvox p.o. Cellulitis of right lower extremity: Code(s): L03.115 - Cellulitis of right lower limb Status: Acute Assessment and Plan: Patient came in with a 5-6 day history of worsening cellulitis to right lower extremity with open wounds. Tibia/fibula x-ray did not show any acute changes History of IV drug use however in remission Venous dopplers negative. Antibiotics see above History of MRSA infection: Code(s): Z86.14 - Personal history of Methicillin resistant Staphylococcus aureus infection Status: Acute Assessment and Plan: See above Protein calorie malnutrition: Code(s): E46 - Unspecified protein-calorie malnutrition Status: Acute Assessment and Plan: * BMI 21.4, 75.5 kg * Dietitian consult Time Spent with Patient Time attestation: Total time spent providing and/or coordinating discharge services: Exam Narrative: GENERAL: Pleasant, in no acute distress. Well-nourished. - EYES: EOMI. Anicteric. - HENT: Moist mucous membranes. - LUNGS: Clear to auscultation bilateral ly, no wheezing, rhonchi, or rales. - CARDIOVASCULAR: Regular rate and rhyth m. No murmur. No JVD. - ABDOMEN: Soft, non-tender and non-dist ended. No palpable masses. - EXTREMITIES: No edema. Peripheral puls es 2+. Non-tender. - NEUROLOGIC: No focal neurological defi cits. CN II-XII grossly intact. - PSYCHIATRIC: Awake, Alert and oriented x 3. Appropriate mood and affect. - SKIN: Cellulitis of right lower extre mity has improved significantly. No tender or a swelling - LYMPH: No cervical lymphadenopathy. DS: Data Data Completed and Pending Labs on day of discharge: Labs from last 24 hours 08/13/24 04:52 WBC 6.3 RBC 4.18 L Hgb 12.3 L Hct 38.0 L MCV 90.9 MCH 29.4 MCHC 32.4 RDW 12.0 Plt Count 351 MPV 9.0 Immature Gran % (Auto) 0.6 H Neut % (Auto) 64.7 Lymph % (Auto) 22.2 [place] % (Auto) 6.7 Eos % (Auto) 5.0 H Baso % (Auto) 0.8 Lymph # (Auto) 1.39 [place] # (Auto) 0.4 Eos # (Auto) 0.3 Baso # (Auto) 0.1 Abs Immat Gran (auto) 0.04 H Absolute Neuts (auto) 4.0 Absolute Nucleated RBC 0.000 Nucleated RBC % 0.0 ESR 57 H Sodium 138 Potassium 4.9 Chloride 103 Carbon Dioxide 29 Anion Gap 6 BUN 14 Creatinine 0.95 Estim Creat Clear Calc 96 Estimated GFR > 60 Glucose 87 Calcium 8.8 Total Bilirubin 0.2 AST 32 ALT 41 Alkaline Phosphatase 64 C-Reactive Protein 3.5 H Total Protein 7.0 Albumin 3.0 L Preliminary micro results at discharge 08/09/24 21:30 Anaerobic Culture - Preliminary Leg Right 08/09/24 21:30 Blood Culture - Preliminary Blood 08/09/24 21:09 Blood Culture - Preliminary Blood Discharge Plan Discharge Attending physician on discharge: Brittany Ho Discharging Clinician: Brittany Ho Anticipated Discharge Date/Time: 08/13/24 13:14 Patient Disposition: Home, Self-Care Activity: may shower and as tolerated Diet: as tolerated and regular Patient Instructions: Antibiotic Form Patient Language: Estonian Stand Alone Forms: General Discharge Information Follow-up/Referrals: UNKNOWN,DOCTOR [Primary Care Provider] - (Patient needs to see primary care doctor in 1 week) Discharge Medications: New linezolid 600 mg Tablet 600 mg PO Q12HR Qty: 10 0RF No Action No Home Medications Date of admission: 08/09/24 22:07 Primary Care Provider: UNKNOWN,DOCTOR Admitting Provider: Katie Luong Attending physician on admission: Carissa Carter Condition: Stable
[2024-08-13 14:00] VITALS: BP 134/90; PULSE 98; RESP 18; TEMP 36.5; O2SAT 100
== END 2024-08-13 15:00 | disposition home or self-care (01) | DRG 720 ==
LOC: ANHED 22:07 → ANH2MED 22:41
PROVIDERS: Nurse Practitioner Acute Care; Nurse Practitioner Family; Admitting Provider Family Medicine; Emergency Provider Student in an Organized Health Care Education/Training Program; Visit Provider Hospitalist
DX: A41.9 Sepsis, unspecified organism (principal); L03.115 Cellulitis of right lower limb; B95.61 Methicillin susceptible Staphylococcus aureus infection as the cause of diseases classified elsewhere; B95.0 Streptococcus, group A, as the cause of diseases classified elsewhere; E46 Unspecified protein-calorie malnutrition; Z89.422 Acquired absence of other left toe(s); Z86.14 Personal history of Methicillin resistant Staphylococcus aureus infection; Z68.21 Body mass index [BMI] 21.0-21.9, adult; Z87.898 Personal history of other specified conditions; Z87.891 Personal history of nicotine dependence
CPT/HCPCS: 36415; 73590; 80053; 80307; 83605; 83735; 85025; 85055; 85652; 86140; 87040; 87070; 87075; 87181; 87205; 93971; 96365; 96367; 96375; 96376; 99285; A9270; J1650; J1885; J3370; J7120